=== PATIENT | male | born 1950 | race Caucasian/White ===

== ENCOUNTER 2017-11-21 23:03 | Inpatient (IN) ==
[2017-11-21] MEDS ORDERED: 0.9 % Sodium Chloride 1,000 ML IVC ONE (23:09)
[2017-11-21] MEDS ORDERED: Ketorolac 30 MG/ML VIAL IVP ONE (23:18)
--- NOTE | 2017-11-21 23:32 | Emergency Department Note ---
Disposition Clinical Impression: Calculus of kidney, Acute kidney injury Disposition: Admitted As Inpatient Condition: Undetermined Abdominal Pain HPI - General Chief Complaint: ED Abdominal Pain Stated Complaint: abdominal pain Time Seen by Provider: 11/21/17 23:08 Source: patient Mode of arrival: private vehicle Limitations: no limitations Nursing Notes Reviewed: Yes Vital Signs Reviewed: Yes - History of Present Illness HPI Narrative: 67-year-old male with a history of hypertension, diabetes mellitus, multiple renal calculi with obstructing and nonobstructing presents emergency department for evaluation of a kidney stone from his right kidney. Patient states he has had at least 12 separate kidney stones, he has had a choking signs once and had to have surgery and he has passed many stones at his home, he states this is the exact same pain and he is for certain that he is having another kidney stone. Patient describes abdominal pain starting in his back around to the abdomen, is accompanied by nausea, vomiting. symptoms started 2 days ago, and have only gotten worse. She states urine is starting to turn red, but he has not passed the stone as of yet. Last kidney stone 08/03, passed on his own. Patient follows with Dr. Mi from urology, but has not had to see him for quite some time. Denies dysuria, polyuria, difficulty with urination. Patient is not on any blood thinners, denies fever, chills. Last bowel movement was yesterday and normal, denies prostate problems. Known medications include Januvia, glipizide, Lipitor, lisinopril. Pt Subjective Complaint: abdominal pain, flank pain Onset (ago): day(s) Consistency: constant, intermittent, Worsening Location: R flank Pain Severity: moderate, severe Pain Scale: 8 Quality: cramping, sharp Radiation: RUQ, RLQ Migration to: no migration Improves with: nothing Worsens with: nothing, other (Urination) Treatments prior to arrival: none - Related Data Home Medications Medication Instructions Recorded Confirmed Escitalopram [Lexapro] 20 mg PO DAILY 05/28/15 11/22/17 Meloxicam [Mobic] 7.5 mg PO DAILY 05/28/15 11/22/17 Methocarbamol [Robaxin] 750 mg PO Q8HR 05/28/15 11/22/17 Omeprazole [PriLOSEC] 20 mg PO DAILY 05/28/15 11/22/17 Potassium Chloride [Klor-Con 10 meq PO DAILY 05/28/15 11/22/17 Sprinkle] Valsartan/Hydrochlorothiazide 1 each PO DAILY 05/28/15 11/22/17 [Diovan Hct 320-12.5 mg Tab] GlipiZIDE XL (24 HR) [Glucotrol XL] 10 mg PO DAILY 01/28/16 11/22/17 Mometasone Furoate [Nasonex] 1 spr NS DAILY 01/28/16 11/22/17 Previous Rx's Medication Instructions Recorded Oxycodone HCl/Acetaminophen 1 tab PO Q6HR PRN #8 tab 05/28/15 [Percocet 10-325 mg Tablet] Allergies Allergy/AdvReac Type Severity Reaction Status Date / Time Amoxicillin AdvReac Hives Verified 11/21/17 23:05 ampicillin AdvReac Hives Verified 11/21/17 23:05 aspirin [ASA] AdvReac See Verified 11/21/17 23:05 Comments celecoxib [From Celebrex] AdvReac Nausea Verified 11/21/17 23:05 cephalexin [From Keflex] AdvReac Chest Pain Verified 11/21/17 23:05 lisinopril AdvReac UNKNOWN Verified 11/21/17 23:05 metformin AdvReac Diarrhea Verified 11/21/17 23:05 Penicillins AdvReac Hives Verified 11/21/17 23:05 All systems ED: reviewed and negative except as stated. Review of Systems: As Per HPI Abdominal Pain PMH - Past Medical History Medical history: Reports: diabetes, GERD, hypertension, kidney stones Psychiatric history: Reports: anxiety, depression - Social History Smoking status: Never smoker Alcohol use: Reports: none Drug use: Reports: none Physical Exam - General Limitations: no limitations General appearance: alert, in no apparent distress - Head Head exam: atraumatic, normocephalic, normal inspection - Chest Chest inspection: Present: normal inspection, symmetric chest wall rise - Respiratory Respiratory exam: Present: normal lung sounds bilaterally - Cardiovascular Cardiovascular exam: Present: regular rate, normal rhythm, normal heart sounds - Abdominal Exam Abdominal exam: Present: soft, Non-Tender, normal bowel sounds. Absent: tenderness, distention, guarding, rebound, rigidity - Extremities Exam Extremities exam: Present: normal inspection, full ROM. Absent: tenderness, pedal edema - Back Exam Back exam: Present: normal inspection, full ROM, CVA tenderness (R) - Neurological Exam Neurological exam: Present: alert, oriented X3 - Psychiatric Psychiatric exam: Present: normal affect, normal mood - Skin Skin exam: Present: warm, dry, intact, normal color Course Course Narrative: 67-year-old well-hydrated, well-developed, obese male in moderate amount of distress. Patient sitting on side of bed rubbing right flank area and right abdomen. He is alert and oriented 3, respirations are easy and even, slightly tachycardic at 113, abdomen protuberant, bowel sounds 4. Due to history of obstructive kidney stones we will get a CT the abdomen and pelvis along with a urine, basic lab work and evaluated. - Reevaluation(s) Reevaluation #1: Laboratory results shows a leukocytosis 13.9 white cell count, continues with slight tachycardia. Meet Sirs criteria. CT shows 15 mm stone in the ureteropelvic area of the right kidney, with hydronephrosis. Metabolic panel shows kidney injury with a creatinine above baseline, GFR below baseline, elevated BUNs at 25. Spoke with Dr. Ragland and discussed case with him, he states he will see them in the morning. Discussed case with hospitalist Dr. Lara who agreed to take the patient for an inpatient stay. Sepsis subset completed, we will finish the 30 mL kilogram bolus given an additional 2 L, continued to manage pain, order blood cultures, started Levaquin antibiotic due to allergy to penicillins, Rocephin's, cephalosporins. Family agreeable plan of care. Patient remains stable at this time. Time: 01:15 Vital Signs Temperature 99.3 F 11/21/17 23:03 Pulse Rate 113 11/21/17 23:03 Respiratory Rate 16 11/21/17 23:03 Blood Pressure 176/98 11/21/17 23:03 O2 Sat by Pulse Oximetry 96 11/21/17 23:03 Temperature 99.5 F 11/22/17 00:13 Pulse Rate 103 11/22/17 00:13 Respiratory Rate 18 11/22/17 00:13 Blood Pressure 126/61 11/22/17 00:13 O2 Sat by Pulse Oximetry 96 11/22/17 00:13 Oxygen Delivery Oxygen Delivery Room Air Abdominal Pain - Differential Diagnosis Differential Diagnosis: Likely: abdominal pain non-specific, AAA, calculus of kidney, constipation, ischemic bowel, pancreatitis, small bowel obstruction. Unlikely: abdominal pain mimics ectopic , acute appendicitis, colonic obstruction, endometriosis, - Medical Records Medical records reviewed: Yes I reviewed the patient's medical records. - Lab Data Lab results reviewed: Yes I reviewed the patient's lab results. Result diagrams: 11/21/17 23:20 11/21/17 23:20 Lab Results 11/21/17 11/21/17 11/21/17 Range/Units 23:20 23:20 23:20 WBC 13.9 H (4.3-11.1) K/mcL RBC 4.06 L (4.19-5.50) M/mcL Hgb 12.4 L (12.9-16.9) g/dL Hct 36.4 L (37.5-50.1) % MCV 89.7 (83.0-100.0) fL MCH 30.5 (28.0-33.3) pg MCHC 34.1 (31.6-35.5) g/dL RDW 12.8 (11.5-14.5) % Plt Count 255 (140-400) K/mcL MPV 10.5 (9.4-12.4) fL Immature Gran % 0.4 (0-4) % Seg Neutrophils % 66.7 % Lymphocytes % 18.1 % Monocytes % 12.7 % Eosinophils % 1.5 % Basophils % 0.6 % Neutrophils # 9.3 H (1.6-8.9) K/mcL Lymphocytes # 2.5 (0.6-4.6) K/mcL Monocytes # 1.8 H (0.0-1.3) K/mcL Eosinophils # 0.2 (0.0-0.6) K/mcL Basophils # 0.1 (0.0-0.2) K/mcL PT 11.8 (9.4-12.1) Seconds INR 1.1 APTT 28.5 (26.0-36.0) Seconds Sodium 133 L (136-145) mEq/L Potassium 4.1 (3.5-5.1) mEq/L Chloride 98 (98-107) mEq/L Carbon Dioxide 26 (23-29) mEq/L BUN 25 H (8-23) mg/dL Creatinine 2.21 H (0.70-1.30) mg/dL Est GFR ( Amer) 36 L (> 60) Est GFR (Non-Af Amer) 30 L (> 60) BUN/Creatinine Ratio 11 (6-26) Glucose 203 H (70-105) mg/dL Calculated Osmolality 286 (280-300) Lactic Acid (0.5-2.2) mmol/L Calcium 8.7 (8.6-10.3) mg/dL Total Bilirubin 0.7 (0.3-1.0) mg/dL Direct Bilirubin 0.2 (0.0-0.2) mg/dL Indirect Bilirubin 0.5 (0.0-1.2) mg/dL AST 20 (13-39) Units/L ALT 21 (7-52) Units/L Alkaline Phosphatase 107 H (34-104) Units/L Serum Total Protein 7.4 (6.4-8.9) g/dL Albumin 3.7 (3.5-5.7) g/dL Globulin 3.7 H (2.4-3.5) g/dL Albumin/Globulin Ratio 1.0 L (1.1-2.2) Lipase 20 (11-82) Units/L Urine Color (Yellow) Urine Clarity (Clear) Urine pH (5.0-8.0) pH Units Ur Specific [place] (1.010-1.025) Urine Protein (Neg-Trace) mg/dL Urine Glucose (UA) (Normal) mg/dL Urine Ketones (Negative) mg/dL Urine Blood (Negative) Urine Nitrite (Negative) Urine Bilirubin (Negative) Urine Urobilinogen (Normal) mg/dL Ur Leukocyte Esterase (Negative) Urine Microscopic RBC (0-3) per hpf Urine Microscopic WBC (0-3) per hpf Ur Squamous Epith Cells (None-Few) per lpf Urine Bacteria (None-Few) per hpf Hyaline Casts (None-Few) per lpf Ur Culture Indicated? (NO) 11/22/17 11/22/17 Range/Units 00:34 01:56 WBC (4.3-11.1) K/mcL RBC (4.19-5.50) M/mcL Hgb (12.9-16.9) g/dL Hct (37.5-50.1) % MCV (83.0-100.0) fL MCH (28.0-33.3) pg MCHC (31.6-35.5) g/dL RDW (11.5-14.5) % Plt Count (140-400) K/mcL MPV (9.4-12.4) fL Immature Gran % (0-4) % Seg Neutrophils % % Lymphocytes % % Monocytes % % Eosinophils % % Basophils % % Neutrophils # (1.6-8.9) K/mcL Lymphocytes # (0.6-4.6) K/mcL Monocytes # (0.0-1.3) K/mcL Eosinophils # (0.0-0.6) K/mcL Basophils # (0.0-0.2) K/mcL PT (9.4-12.1) Seconds INR APTT (26.0-36.0) Seconds Sodium (136-145) mEq/L Potassium (3.5-5.1) mEq/L Chloride (98-107) mEq/L Carbon Dioxide (23-29) mEq/L BUN (8-23) mg/dL Creatinine (0.70-1.30) mg/dL Est GFR ( Amer) (> 60) Est GFR (Non-Af Amer) (> 60) BUN/Creatinine Ratio (6-26) Glucose (70-105) mg/dL Calculated Osmolality (280-300) Lactic Acid 1.1 (0.5-2.2) mmol/L Calcium (8.6-10.3) mg/dL Total Bilirubin (0.3-1.0) mg/dL Direct Bilirubin (0.0-0.2) mg/dL Indirect Bilirubin (0.0-1.2) mg/dL AST (13-39) Units/L ALT (7-52) Units/L Alkaline Phosphatase (34-104) Units/L Serum Total Protein (6.4-8.9) g/dL Albumin (3.5-5.7) g/dL Globulin (2.4-3.5) g/dL Albumin/Globulin Ratio (1.1-2.2) Lipase (11-82) Units/L Urine Color Yellow (Yellow) Urine Clarity Clear (Clear) Urine pH 5.5 (5.0-8.0) pH Units Ur Specific [place] 1.026 H (1.010-1.025) Urine Protein Trace (Neg-Trace) mg/dL Urine Glucose (UA) Normal (Normal) mg/dL Urine Ketones Negative (Negative) mg/dL Urine Blood Trace H (Negative) Urine Nitrite Negative (Negative) Urine Bilirubin Negative (Negative) Urine Urobilinogen Normal (Normal) mg/dL Ur Leukocyte Esterase Negative (Negative) Urine Microscopic RBC 3-5 H (0-3) per hpf Urine Microscopic WBC 3-5 H (0-3) per hpf Ur Squamous Epith Cells Moderate H (None-Few) per lpf Urine Bacteria None Seen (None-Few) per hpf Hyaline Casts None Seen (None-Few) per lpf Ur Culture Indicated? NO (NO) - Radiology Data Radiology results reviewed: Yes I reviewed the patient's radiology results. Abdomen/Pelvis CT 11/21/17 23:19 IMPRESSION: Moderate right hydronephrosis due to a 15 mm stone at the ureteropelvic junction. Multiple smaller nonobstructing nephroliths bilaterally. Other incidental findings as above. Urologic consultation recommended. D/ / Robby Jordan MD / Robby Jordan MD Interpreting Provider: Robby Jordan MD - EKG Data EKG attestation: Yes I reviewed and interpreted this EKG. Attestation Statement - Attestation Attestation: I examined this patient and my medical decision-making was reviewed with the Resident Physician. I agree with the documented findings, disposition and treatment plan as described except to the extent set forth below. Findings consistent with obstructive uropathy. Plan to admit for urology consult given acute kidney injury.
[2017-11-21 23:39] LABS: Basophils # 0.1 K/mcL (0.0-0.2); Basophils % 0.6 %; Eosinophils # 0.2 K/mcL (0.0-0.6); Eosinophils % 1.5 %; Hematocrit 36.4 % (37.5-50.1); Hemoglobin 12.4 g/dL (12.9-16.9); Immature Granulocytes % 0.4 % (0-4); Lymphocytes # 2.5 K/mcL (0.6-4.6); Lymphocytes % 18.1 %; Mean Corpuscular HGB Conc 34.1 g/dL (31.6-35.5); Mean Corpuscular Hemoglobin 30.5 pg (28.0-33.3); Mean Corpuscular Volume 89.7 fL (83.0-100.0); Mean Platelet Volume 10.5 fL (9.4-12.4); Monocytes # 1.8 K/mcL (0.0-1.3); Monocytes % 12.7 %; Neutrophils # 9.3 K/mcL (1.6-8.9); Platelet Count 255 K/mcL (140-400); Red Blood Count 4.06 M/mcL (4.19-5.50); Red Cell Distribution Width 12.8 % (11.5-14.5); Segmented Neutrophils % 66.7 %
[2017-11-21 23:44] LABS: INR 1.1; Prothrombin Time 11.8 Seconds (9.4-12.1)
[2017-11-21 23:47] LABS: Activated Partial Thrombo Time 28.5 Seconds (26.0-36.0)
[2017-11-21 23:55] LABS: Albumin 3.7 g/dL (3.5-5.7); Bilirubin,Direct 0.2 mg/dL (0.0-0.2); Bilirubin,Indirect 0.5 mg/dL (0.0-1.2); Bilirubin,Total 0.7 mg/dL (0.3-1.0); Calcium 8.7 mg/dL (8.6-10.3); Globulin 3.7 g/dL (2.4-3.5); Potassium 4.1 mEq/L (3.5-5.1); Total Protein 7.4 g/dL (6.4-8.9)
[2017-11-22 00:45] LABS: Bilirubin,Urine Negative (Negative); Blood,Urine Trace (Negative); Clarity,Urine Clear (Clear); Color,Urine Yellow (Yellow); Glucose,Urine (UA) Normal (Normal); Ketones,Urine Negative (Negative); Leukocyte Esterase,Urine Negative (Negative); Nitrite,Urine Negative (Negative); PH,Urine 5.5 pH Units (5.0-8.0); Protein,Urine Trace mg/dL (Neg-Trace); Specific Gravity,Urine 1.026 (1.010-1.025); Urobilinogen,Urine Normal (Normal)
[2017-11-22 00:48] LABS: Bacteria,Urine None Seen per hpf (None-Few); Hyaline Casts,Urine None Seen per lpf (None-Few); Squamous Epithelial Cell,Urine Moderate per lpf (None-Few)
[2017-11-22] MEDS ORDERED: Levofloxacin 750 MG/150 ML 750 MG/150 ML BAG IVPB SCH (01:00)
[2017-11-22] MEDS: 0.9 % Sodium Chloride 1,000 ML IVC SCH ×4 (01:33→12:30)
[2017-11-22] MEDS ORDERED: OXYCODONE Oral CONC 10 MG/0.5 ML ORAL.SYG SL PRN (02:10)
[2017-11-22] MEDS ORDERED: Ondansetron 4 MG/2 ML VIAL IVP PRN (02:10)
[2017-11-22] MEDS ORDERED: Naloxone 0.4 MG/ML INJ IVP PRN (02:10)
[2017-11-22] MEDS ORDERED: Dextrose Gel 15 GM/37.5 ML TUBE PO PRN ×2 (02:17)
[2017-11-22] MEDS ORDERED: D5% in Water 1,000 ML IVC PRN (02:17)
[2017-11-22] MEDS ORDERED: *HR* Dextrose 50 % in Water (Syg) 50 ML SYRINGE IVP PRN (02:17)
--- NOTE | 2017-11-22 04:26 | Internal Med History&Physical ---
Date of Encounter: 11/22/17 Time of Encounter: 01:00 Internal Medicine - H&P: HPI Chief complaint: Right flank pain Admitted From: Home Plans for Post Hospital Care: Home History of present illness: Mr. Chen is a 67 year old male presented to ER for right-sided flank pain. Past medical history is significant for diabetes, hypertension, hyperlipidemia, BON on CPAP. Patient said he has right-sided flank pain for 1-2 days. Pain radiated to right groin area. Patient has nausea and fever, but no vomiting. patient also has dysuria and burning sensation on urination. He has history of kidney stone and he has similar symptoms with last time ureteral stone. In the emergency room, CT abdomen shows right-sided ureteral stone with obstruction. Urology consult called by emergency room. Patient was admitted for UTI, urosepsis, and ureteral stone. Past Med Surg Social Fam HX - Past Medical History Medical history: diabetes, GERD, hypertension, kidney stones Psychiatric history: anxiety, depression - Past Surgical History Surgical History: cholecystectomy, vasectomy - Social History Smoking Status: Never smoker Smokeless Tobacco Status: No Alcohol use: none Drug use: none - Family History Mother History Unknown: Yes Internal Medicine - H&P: Meds Escitalopram [Lexapro] 20 mg PO DAILY 05/28/15 [History] Meloxicam [Mobic] 7.5 mg PO DAILY 05/28/15 [History] Methocarbamol [Robaxin] 750 mg PO Q8HR 05/28/15 [History] Omeprazole [PriLOSEC] 20 mg PO DAILY 05/28/15 [History] Oxycodone HCl/Acetaminophen [Percocet 10-325 mg Tablet] 1 tab PO Q6HR PRN #8 tab 05/28/15 [Rx] Potassium Chloride [Klor-Con Sprinkle] 10 meq PO DAILY 05/28/15 [History] Valsartan/Hydrochlorothiazide [Diovan Hct 320-12.5 mg Tab] 1 each PO DAILY 05/28 [History] GlipiZIDE XL (24 HR) [Glucotrol XL] 10 mg PO DAILY 01/28/16 [History] Mometasone Furoate [Nasonex] 1 spr NS DAILY 01/28/16 [History] 3 Allergy/AdvReac Type Severity Reaction Status Date / Time Amoxicillin AdvReac Hives Verified 11/21/17 23:05 ampicillin AdvReac Hives Verified 11/21/17 23:05 aspirin [ASA] AdvReac See Verified 11/21/17 23:05 Comments celecoxib [From Celebrex] AdvReac Nausea Verified 11/21/17 23:05 cephalexin [From Keflex] AdvReac Chest Pain Verified 11/21/17 23:05 lisinopril AdvReac UNKNOWN Verified 11/21/17 23:05 metformin AdvReac Diarrhea Verified 11/21/17 23:05 Penicillins AdvReac Hives Verified 11/21/17 23:05 All Systems PM: A 10-system review of systems was performed and is negative for pertinent findings except as documented above in the HPI. - Constitutional Vitals: Temp Pulse Resp BP Pulse Ox 99.5 F 103 18 126/61 96 11/22/17 00:13 11/22/17 00:13 11/22/17 00:13 11/22/17 00:13 11/22/17 00:13 General appearance: Present: mild distress, A&O X 3, answers questions appropriately - Head Head exam: Present: atraumatic, normocephalic - Eye Eye exam: Present: PERRL, conjuntiva pink, sclera anicteric Pupils: Present: PERRL - Neck Neck exam general surgery: Present: supple, trachea midline. Absent: lymphadenopathy - Respiratory Respiratory exam: Present: CTAB. Absent: accessory muscle use, rales, rhonchi, wheezes - Cardiovascular Cardiovascular exam: Present: RRR, +S1, +S2. Absent: diastolic murmur, gallop, rubs, systolic murmur - GI/Abdominal GI/Abdominal exam: Present: normal bowel sounds, soft, no peritoneal signs. Absent: distended, tenderness Additional comments: CVAT positive on the right side - Extremities Exam Extremities exam: Present: warm, radial pulses palpable and symmetrical. Absent : calf tenderness, cyanotic, pedal edema - Neurological Exam Neurological exam: Present: CN II-XII intact, oriented X3, no focal deficits. Absent: pronater drift, facial droop, speech deficit - Skin Skin exam: Present: dry, intact Internal Med - H&P Results - Labs CBC & Chem 7: 11/21/17 23:20 11/21/17 23:20 - Assessment and plan (1) Sepsis Current Visit: Yes Status: Acute Assessment and plan: Patient meets sepsis criteria with leukocytosis, tachycardia, and low fever. Infection source is considered UTI. - Early IV fluid resuscitation started from ER. Continue IV fluid - Lactate acid 1.1 - Start Levaquin IV - Urology consult to solve obstruction - Follow up blood and urine culture Qualifiers: Qualified Code(s): A41.9 - Sepsis, unspecified organism (2) Ureteral stone Current Visit: Yes Status: Acute Assessment and plan: Urology consult. 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 Closely monitor BP Qualifiers: Hypertension type: essential hypertension Qualified Code(s): I10 - Essential (primary) hypertension (5) BON on CPAP Current Visit: Yes Status: Acute Assessment and plan: Continue CPAP during night (6) DVT prophylaxis Current Visit: Yes Status: Acute Assessment and plan: EPCD (7) Acute kidney injury Current Visit: Yes Status: Acute Assessment and plan: Probably multiple factors include dehydration, right side of obstruction. Will continue IV fluid, avoid nephrotoxic medications, and follow-up renal function - Time Spent With Patient Total time spent is greater than 50% in coordination of care (as documented) at patient's floor/unit and/or counseling patient: 40 minutes Greater than 35 minutes
[2017-11-22] MEDS: Insulin LISPRO 300 UNITS/3 ML VIAL SQ SCH ×3 (04:34→17:40)
[2017-11-22] MEDS: OXYCODONE Oral CONC 10 MG/0.5 ML ORAL.SYG SL PRN ×3 (05:16→17:46)
[2017-11-22 05:51] LABS: Basophils # 0.1 K/mcL (0.0-0.2); Basophils % 0.6 %; Eosinophils # 0.2 K/mcL (0.0-0.6); Eosinophils % 1.8 %; Hematocrit 30.8 % (37.5-50.1); Immature Granulocytes % 0.3 % (0-4); Lymphocytes # 2.1 K/mcL (0.6-4.6); Lymphocytes % 19.4 %; Mean Corpuscular HGB Conc 34.4 g/dL (31.6-35.5); Mean Corpuscular Hemoglobin 30.7 pg (28.0-33.3); Mean Corpuscular Volume 89.3 fL (83.0-100.0); Mean Platelet Volume 10.4 fL (9.4-12.4); Monocytes # 1.4 K/mcL (0.0-1.3); Monocytes % 13.2 %; Neutrophils # 6.8 K/mcL (1.6-8.9); Platelet Count 199 K/mcL (140-400); Red Blood Count 3.45 M/mcL (4.19-5.50); Red Cell Distribution Width 12.8 % (11.5-14.5); Segmented Neutrophils % 64.7 %
[2017-11-22 05:53] LABS: Hemoglobin 10.6 g/dL (12.9-16.9)
[2017-11-22 06:08] LABS: Calcium 7.5 mg/dL (8.6-10.3); Magnesium 1.2 mg/dL (1.6-2.6)
--- NOTE | 2017-11-22 08:09 | Urology - Consult Note ---
Date of Encounter: 11/22/17 Time of Encounter: 08:07 - Assessment and Plan (1) Acute kidney injury Current Visit: Yes Status: Acute Assessment and plan: Appreciate hospitalist support. We will avoid nephrotoxins. (2) Calculus of kidney Current Visit: Yes Status: Acute Assessment and plan: 67-year-old man with a right 15 mm ureteropelvic junction stone. I recommend proceeding with a cystoscopy and right ureteral stent placement. He was informed of the risks of the procedure including but not limited to bleeding, infection, injury to other structures, need for further procedures, stent irritation, ureteral perforation, need for nephrostomy tube, need for open repair, risks unforeseen, and the risk of anesthesia. He is willing to proceed. Urology CN:NIDIA Consult date: 11/22/17 Reason for consult Urology: Other (Right UPJ stone, PRASAD) History of present illness: 67-year-old man was admitted for a right UPJ stone with hydronephrosis and acute kidney injury. He began to have right flank pain starting for 5 days ago. The pain became more severe yesterday. It was sharp. It radiated to the groin. He reports having a known history of kidney stones and felt this was very similar to previous episodes. He came to the emergency department. A CT scan was obtained which showed a 15 mm right UPJ stone with evidence of hydronephrosis. In addition, he had an elevated creatinine. He was admitted for further care. He denies any fevers or chills. Past Med Surg Social Fam HX - Past Medical History Medical history: diabetes, GERD, hypertension, kidney stones Psychiatric history: anxiety, depression - Past Surgical History Surgical History: cholecystectomy, vasectomy - Social History Smoking Status: Never smoker Smokeless Tobacco Status: No Alcohol use: none Drug use: none - Family History Mother History Unknown: Yes Medications and Allergies Escitalopram [Lexapro] 20 mg PO DAILY 05/28/15 [History] Omeprazole [PriLOSEC] 20 mg PO DAILY 05/28/15 [History] Valsartan/Hydrochlorothiazide [Diovan Hct 320-12.5 mg Tab] 1 each PO DAILY 05/28 [History] GlipiZIDE XL (24 HR) [Glucotrol XL] 10 mg PO DAILY 01/28/16 [History] Atorvastatin Calcium [Lipitor] 80 mg PO HS 11/22/17 [History] Cyclobenzaprine [Flexeril] 10 mg PO TID 11/22/17 [History] Exenatide Microspheres [Bydureon Pen] 2 mg SQ QWEEK 11/22/17 [History] Meloxicam [Mobic] 15 mg PO DAILY 11/22/17 [History] Oxycodone HCl/Acetaminophen [Percocet 5-325 mg Tablet] 1 tab PO BID PRN [History] Potassium Chloride [K-Tab ER] 40 meq PO BID 11/22/17 [History] SitaGLIPtin [Januvia] 100 mg PO DAILY 11/22/17 [History] 3 Allergy/AdvReac Type Severity Reaction Status Date / Time Amoxicillin AdvReac Hives Verified 11/21/17 23:05 ampicillin AdvReac Hives Verified 11/21/17 23:05 aspirin [ASA] AdvReac See Verified 11/21/17 23:05 Comments celecoxib [From Celebrex] AdvReac Nausea Verified 11/21/17 23:05 cephalexin [From Keflex] AdvReac Chest Pain Verified 11/21/17 23:05 lisinopril AdvReac UNKNOWN Verified 11/21/17 23:05 metformin AdvReac Diarrhea Verified 11/21/17 23:05 Penicillins AdvReac Hives Verified 11/21/17 23:05 Review of Systems - Constitutional no chills, no fever(s) - EENT Nose, mouth and throat: no dizziness - Cardiovascular no chest pain - Respiratory no dyspnea - Gastrointestinal no nausea, no vomiting - Genitourinary flank pain, no hematuria - Musculoskeletal no back pain - Integumentary no erythema, no rash - Neurological no weakness - Psychiatric no suicidal ideation - Hematologic/Lymphatic no easy bleeding - Allergic/Immunologic no wheezing Exam Initial Vital Signs Temp Pulse Resp BP Pulse Ox 99.3 F 113 16 176/98 96 11/21/17 23:03 11/21/17 23:03 11/21/17 23:03 11/21/17 23:03 11/21/17 23:03 - General physical appearance Present: well developed, well nourished, no distress - Eyes Absent: icteric - ENT Present: normal nares - Neck Present: trachea midline - Respiratory Present: normal respiratory effort - Cardiovascular Cardiovascular exam IM: RRR - Abdomen Abdomen: Present: soft - Integumentary Present: no rash - Neurologic Present: normal coordination - Musculoskeletal Present: other (grossly normal) Urology Results - Labs 11/22/17 05:37 11/22/17 05:37 Abnormal lab results RBC 3.45 M/mcL (4.19-5.50) L 11/22/17 05:37 Hgb 10.6 g/dL (12.9-16.9) L D 11/22/17 05:37 Hct 30.8 % (37.5-50.1) L 11/22/17 05:37 Monocytes # 1.4 K/mcL (0.0-1.3) H 11/22/17 05:37 Sodium 134 mEq/L (136-145) L 11/22/17 05:37 BUN 26 mg/dL (8-23) H 11/22/17 05:37 Creatinine 2.07 mg/dL (0.70-1.30) H 11/22/17 05:37 Est GFR ( Amer) 39 (> 60) L 11/22/17 05:37 Est GFR (Non-Af Amer) 32 (> 60) L 11/22/17 05:37 Glucose 139 mg/dL (70-105) H 11/22/17 05:37 Calcium 7.5 mg/dL (8.6-10.3) L 11/22/17 05:37 Magnesium 1.2 mg/dL (1.6-2.6) L 11/22/17 05:37 Alkaline Phosphatase 107 Units/L (34-104) H 11/21/17 23:20 Globulin 3.7 g/dL (2.4-3.5) H 11/21/17 23:20 Albumin/Globulin Ratio 1.0 (1.1-2.2) L 11/21/17 23:20 Ur Specific [place] 1.026 (1.010-1.025) H 11/22/17 00:34 Urine Blood Trace (Negative) H 11/22/17 00:34 Urine Microscopic RBC 3-5 per hpf (0-3) H 11/22/17 00:34 Urine Microscopic WBC 3-5 per hpf (0-3) H 11/22/17 00:34 Ur Squamous Epith Cells Moderate per lpf (None-Few) H 11/22/17 00:34 Diabetes panel 11/22/17 Range/Units 05:37 Sodium 134 L (136-145) mEq/L Potassium 4.0 (3.5-5.1) mEq/L Chloride 102 (98-107) mEq/L Carbon Dioxide 24 (23-29) mEq/L BUN 26 H (8-23) mg/dL Creatinine 2.07 H (0.70-1.30) mg/dL Glucose 139 H (70-105) mg/dL Calcium 7.5 L (8.6-10.3) mg/dL Calcium panel 11/22/17 Range/Units 05:37 Calcium 7.5 L (8.6-10.3) mg/dL Pituitary panel 11/22/17 Range/Units 05:37 Sodium 134 L (136-145) mEq/L Potassium 4.0 (3.5-5.1) mEq/L Chloride 102 (98-107) mEq/L Carbon Dioxide 24 (23-29) mEq/L BUN 26 H (8-23) mg/dL Creatinine 2.07 H (0.70-1.30) mg/dL Glucose 139 H (70-105) mg/dL Calcium 7.5 L (8.6-10.3) mg/dL Adrenal panel 11/22/17 Range/Units 05:37 Sodium 134 L (136-145) mEq/L Potassium 4.0 (3.5-5.1) mEq/L Chloride 102 (98-107) mEq/L Carbon Dioxide 24 (23-29) mEq/L BUN 26 H (8-23) mg/dL Creatinine 2.07 H (0.70-1.30) mg/dL Glucose 139 H (70-105) mg/dL Calcium 7.5 L (8.6-10.3) mg/dL All other labs normal. - Imaging CT scan - abdomen: report reviewed, image reviewed CT scan - pelvis: report reviewed, image reviewed Consult Discharge Plan - Plan Referrals: Sidney Leger MD [Primary Care Provider] -
--- NOTE | 2017-11-22 09:55 | Internal Med Progress Note ---
<James Boswell - Last Filed: 11/22/17 09:52> Date of Encounter: 11/22/17 Time of Encounter: 09:52 - Assessment and plan (1) Sepsis Current Visit: Yes Status: Acute Assessment and plan: Patient was tachycardic, with elevated white blood cell count on admission. Found to have right nephrolithiasis with obstruction and hydronephrosis Urine culture and blood cultures sent and pending. We will continue Levaquin. Qualifiers: Qualified Code(s): A41.9 - Sepsis, unspecified organism (2) Acute kidney injury Current Visit: Yes Status: Acute Assessment and plan: Secondary to right sided nephrolithiasis with obstruction. Continue IV fluids. Avoid nephrotoxins. (3) Ureteral stone Current Visit: Yes Status: Acute Assessment and plan: Plan for cystoscopy today with right ureteral stent placement by urology. Patient has a history of kidney stones. Reports her calcium. He is currently on hydrochlorothiazide which does increase calcium resorption. Depending on what type of calcium stone patient has he may benefit from alkalizing or acidifying urine to decrease stone formation. (4) Diabetes Current Visit: Yes Status: Acute Assessment and plan: Last hemoglobin A1c was 8.8. Patient is on oral hypoglycemic agents outpatient. Currently nothing by mouth for procedure. continue sliding scale insulin. Qualifiers: Diabetes mellitus type: type 2 Diabetes mellitus termite helper insulin use: without detention use Diabetes mellitus complication status: without complication Qualified Code(s): E11.9 - Type 2 diabetes mellitus without complications (5) Hypertension Current Visit: Yes Status: Acute Assessment and plan: Patient has a history of hypertension. We will hold blood pressure medications secondary to a PRASAD Patient's blood pressure is controlled. Qualifiers: Hypertension type: essential hypertension Qualified Code(s): I10 - Essential (primary) hypertension (6) BON on CPAP Current Visit: Yes Status: Acute Assessment and plan: Continue CPAP during night (7) DVT prophylaxis Current Visit: Yes Status: Acute Assessment and plan: EPCD - Time Spent With Patient Total time spent is greater than 50% in coordination of care (as documented) at patient's floor/unit and/or counseling patient: - Subjective Interval history: Patient admitted for right flank pain and found to have obstructive nephrolithiasis on the right with hydronephrosis. He will undergo cystoscopy and right ureteral stent placement today. - Constitutional Vitals: Temp Pulse Resp BP Pulse Ox 98.2 F 99 18 157/88 95 11/22/17 06:45 11/22/17 06:45 11/22/17 06:45 11/22/17 06:45 11/22/17 06:45 General appearance: Present: mild distress, A&O X 3, answers questions appropriately - Other Additional findings: General: without distress Heart: Regular rate and rhythm with no murmur Lungs: Clear to auscultation bilaterally Abdomen: Soft nontender, nondistended positive bowel sounds Skin: warm and dry, absent rash Genitourinary: Absent discharge, absent erythema, absent swelling Extremities: Absent pedal edema, Neuro: Alert oriented 3 Vascular: Pedal and radial pulses 2 out of 4 Internal Medicine: Result - Labs CBC & Chem 7: 11/22/17 05:37 11/22/17 05:37 Labs: Short CBC 11/22/17 Range/Units 05:37 WBC 10.6 (4.3-11.1) K/mcL Hgb 10.6 L D (12.9-16.9) g/dL Hct 30.8 L (37.5-50.1) % Plt Count 199 (140-400) K/mcL Neutrophils # 6.8 (1.6-8.9) K/mcL BMP 11/22/17 05:37 Sodium 134 L Potassium 4.0 Chloride 102 Carbon Dioxide 24 BUN 26 H Creatinine 2.07 H Glucose 139 H Calcium 7.5 L - ABG Interpretation ABG results: PT/INR, D-dimer PT 11.8 Seconds (9.4-12.1) 11/21/17 23:20 Consult Discharge Plan - Plan Referrals: Sidney Leger MD [Primary Care Provider] - <Andreas Azevedo - Last Filed: 11/22/17 13:08> Date of Encounter: 11/22/17 - Assessment and plan (1) Acute kidney injury Current Visit: Yes Status: Acute (2) Sepsis Current Visit: Yes Status: Acute Qualifiers: Qualified Code(s): A41.9 - Sepsis, unspecified organism (3) Ureteral stone Current Visit: Yes Status: Acute (4) Diabetes Current Visit: Yes Status: Acute Qualifiers: Diabetes mellitus type: type 2 Diabetes mellitus termite helper insulin use: without termite helper use Diabetes mellitus complication status: without complication Qualified Code(s): E11.9 - Type 2 diabetes mellitus without complications (5) Hypertension Current Visit: Yes Status: Acute Qualifiers: Hypertension type: essential hypertension Qualified Code(s): I10 - Essential (primary) hypertension (6) BON on CPAP Current Visit: Yes Status: Acute (7) DVT prophylaxis Current Visit: Yes Status: Acute - Time Spent With Patient Total time spent is greater than 50% in coordination of care (as documented) at patient's floor/unit and/or counseling patient: - Constitutional Vitals: Temp Pulse Resp BP Pulse Ox 98.2 F 106 19 148/79 95 11/22/17 11:14 11/22/17 11:14 11/22/17 11:14 11/22/17 11:14 11/22/17 11:14 Internal Medicine: Result - Labs CBC & Chem 7: 11/22/17 05:37 11/22/17 05:37 Labs: Short CBC 11/22/17 Range/Units 05:37 WBC 10.6 (4.3-11.1) K/mcL Hgb 10.6 L D (12.9-16.9) g/dL Hct 30.8 L (37.5-50.1) % Plt Count 199 (140-400) K/mcL Neutrophils # 6.8 (1.6-8.9) K/mcL BMP 11/22/17 05:37 Sodium 134 L Potassium 4.0 Chloride 102 Carbon Dioxide 24 BUN 26 H Creatinine 2.07 H Glucose 139 H Calcium 7.5 L - ABG Interpretation ABG results: PT/INR, D-dimer PT 11.8 Seconds (9.4-12.1) 11/21/17 23:20 - Attending Attestation I examined this patient 11/22, and my medical decision-making was reviewed with the Resident Physician. I agree with the documented findings, disposition and treatment plan as described except to the extent set forth below. 67 M being managed for presumed sepsis secondary to UTI , Post-renal PRASAD, R hydronephrosis, recurrent and obstructive nephrolithiasis NO new complains on eval Still having R flank pain Physical exam: VSS, Obese, in mild painful distress, chest is CTAB, HS S1, S2 only, Abdomen is benign, R CVA tenderness, No pedal edema Labs and Imaging reviewed: Continue current care, continue to hold home ARB/HCTZ. For surgery today per Urology, follow recommendations Rest of details as in the resident physician's documentation
--- NOTE | 2017-11-22 20:22 | Anesthesia Evaluation PreOp ---
Date of Encounter: 11/22/17 Time of Encounter: 20:20 - Past History Planned Operation: Cystoscopy, Right Ureteral Stent Placement Cardiac History: HTN, Hyperlipidemia Pulmonary History: Asthma, BON Dx (CPAP) Other Medical History: Renal (kidney stones), Diabetes Type II, GERD Anesthesia History: No Prior Anesthetic Complications, Past Anesthesia Alcohol Use: none Drug use: none Medications and Allergies Escitalopram [Lexapro] 20 mg PO DAILY 05/28/15 [History] Omeprazole [PriLOSEC] 20 mg PO DAILY 05/28/15 [History] Valsartan/Hydrochlorothiazide [Diovan Hct 320-12.5 mg Tab] 1 each PO DAILY 05/28 [History] GlipiZIDE XL (24 HR) [Glucotrol XL] 10 mg PO DAILY 01/28/16 [History] Atorvastatin Calcium [Lipitor] 80 mg PO HS 11/22/17 [History] Cyclobenzaprine [Flexeril] 10 mg PO TID 11/22/17 [History] Exenatide Microspheres [Bydureon Pen] 2 mg SQ QWEEK 11/22/17 [History] Meloxicam [Mobic] 15 mg PO DAILY 11/22/17 [History] Oxycodone HCl/Acetaminophen [Percocet 5-325 mg Tablet] 1 tab PO BID PRN [History] Potassium Chloride [K-Tab ER] 40 meq PO BID 11/22/17 [History] SitaGLIPtin [Januvia] 100 mg PO DAILY 11/22/17 [History] 3 Allergy/AdvReac Type Severity Reaction Status Date / Time Amoxicillin AdvReac Hives Verified 11/21/17 23:05 ampicillin AdvReac Hives Verified 11/21/17 23:05 aspirin [ASA] AdvReac See Verified 11/21/17 23:05 Comments celecoxib [From Celebrex] AdvReac Nausea Verified 11/21/17 23:05 cephalexin [From Keflex] AdvReac Chest Pain Verified 11/21/17 23:05 lisinopril AdvReac UNKNOWN Verified 11/21/17 23:05 metformin AdvReac Diarrhea Verified 11/21/17 23:05 Penicillins AdvReac Hives Verified 11/21/17 23:05 - Meds/Allergy Pre-op Review Medications Reviewed: Yes Allergies Reviewed: Yes Beta Blockers on Current Med List: No Anesthesia Results - Labs 11/22/17 05:37 11/22/17 05:37 - Imaging EKG: report reviewed (01/25/2016 SINUS RHYTHM) Anesthesia Exam Vital Signs/O2 Sat/Glucose, Most Recent Temp Pulse Resp BP Pulse Ox 98.4 F 96 18 116/60 92 11/22/17 19:00 11/22/17 19:00 11/22/17 19:00 11/22/17 19:00 11/22/17 19:00 Blood Glucose* 125 Height: 5'5''/1.65m Weight: 221 lbs/100 kg - HEENT Pupil (Motor): EOMI Mallampati: II Teeth: Normal Oral Opening: Greater than 3 - AGRICULTURAL SYSTEMS SPECIALIST LOC: Oriented AGRICULTURAL SYSTEMS SPECIALIST Motor: Normal RUE, Normal LUE, Normal RLE, Normal LLE, Normal Face AGRICULTURAL SYSTEMS SPECIALIST Sensory: Normal: RUE, LUE, RLE, LLE, Face - Cardiac Rhythm: Regular Murmur: None - Pulmonary Breath Sounds: bilateral Clear Respiratory Effort: Symmetrical Anesthesia Assess/Plan ASA Score: 3 Modified [place] Scale for Level of Consciousness: Cooperative, oriented, and tranquil Anesthetic Plan: General Monitoring Plan: Standard Monitors Recovery Plan: PACU
[2017-11-22] MEDS ORDERED: *HR* FentaNYL (PF) 100 MCG/2 ML VIAL IVP PRN (20:23)
[2017-11-22] MEDS ORDERED: *HR* FentaNYL (PF) 100 MCG/2 ML VIAL ONE (20:39)
[2017-11-22] MEDS ORDERED: Lidocaine -MPF 2% 2 ML VIAL ONE (20:39)
[2017-11-22] MEDS ORDERED: *HR* Propofol 200 MG/20 ML VIAL IVP ONE (20:39)
[2017-11-22] MEDS ORDERED: *HR* Midazolam HCl 2 MG/2 ML VIAL ONE (20:39)
[2017-11-22] MEDS ORDERED: *HR* Succinylcholine 200 MG/10 ML VIAL IVP ONE (21:02)
--- NOTE | 2017-11-22 21:09 | Operative Note ---
Date of procedure: 11/22/17 Pre-op diagnosis: Right UPJ stone Post-op diagnosis: same Procedure: Cystoscopy, right ureteral stent placement Implants: 6-Bruneian by 26 cm double-J stent Complications: none Anesthesia: BETHA Surgeon: Brendan Ragland Was there an catering administrative assistant present: No Estimated blood loss (cc): 0 Specimen: none Condition: stable Disposition: PACU Procedure in Detail: Indications: Mr. Chen is a 67-year-old male who has a history of nephrolithiasis. He had a CT which showed a right UPJ stone. He elected to undergo a cystoscopy and right ureteral stent placement. He was aware of the risks of the procedure including but not limited to bleeding, infection, injury to other structures, need for further procedures, stent irritation, need for nephrostomy tube, need for open repair, risks otherwise unforeseen, and the risk of anesthesia. He is willing to proceed. Procedure in Detail: After informed consent was obtained the patient was brought back to the operating room and placed in supine position. A time out was performed. General anesthesia was administered and an endotracheal tube was placed. He was then placed in the lithotomy position. He was prepped and draped in the usual sterile fashion. Cystoscopy was performed. The anterior urethra was normal. There was no evidence of bladder tumors. The ureteral orifices were in the normal orthotopic position. There was no duplication of the ureteral orifices. The glide wire was placed in the right ureteral orifice. The wire was then brought up into the kidney under fluoroscopic guidance. A 6 [place] by 26cm JJ stent was then placed. The dangle strings were removed. The bladder was drained. The patient was then awakened from general anesthesia and brought to recovery room in good condition. All sponge, needle, and instrument counts were correct.
--- NOTE | 2017-11-22 22:09 | Anesthesia Evaluation Post Op ---
Date of Encounter: 11/22/17 Time of Encounter: 22:09 - Vital Signs Vital Signs: Vital Signs/O2 Sat, Most Current Temp Pulse Resp BP Pulse Ox 100.7 F H 99 18 137/77 97 11/22/17 22:05 11/22/17 22:05 11/22/17 22:05 11/22/17 21:55 11/22/17 22:05 - Lungs Lungs: Rhonchi - Airway Airway: Non-obstructed - Cardiovascular Regular Rate - Mental Status Mental Status: Alert & Oriented, Answers Appropriately - Pain Pain Scale: 0 Pain Scale used: Numeric (1 - 10) - Nausea Vomiting Nausea Vomiting: Not Present - Hydration Hydration: NPO, Has not voided - Discharge PostOp Status: Transfer Patient to floor
[2017-11-23] MEDS: 0.9 % Sodium Chloride 1,000 ML IVC SCH (00:32)
[2017-11-23] MEDS ORDERED: Levofloxacin 750 MG/150 ML 750 MG/150 ML BAG IVPB SCH (01:00)
[2017-11-23] MEDS: Insulin LISPRO 300 UNITS/3 ML VIAL SQ SCH (01:01)
--- NOTE | 2017-11-23 05:30 | Electrocardiograph Report ---
[address] [address] Test Date: 2017-11-21 Pat Name: Jad Chen Department: 102 Room: [facility] Gender: M Design Painter: CRISTA : 1950 Requested By: [id number] Order Number: [id number] Reading MD: Pedro Christine Measurements Intervals [place] Rate: 107 P: 52 [place]: 143 QRS: 68 QRSD: 90 T: 43 QT: 344 QTc: 406 Interpretive Statements SINUS TACHYCARDIA Electronically Signed On 11-23-2017 5:28:31 EDT by Pedro Christine
[2017-11-23 05:59] LABS: Basophils % 0.2 %; Hematocrit 32.4 % (37.5-50.1); Hemoglobin 10.9 g/dL (12.9-16.9); Immature Granulocytes % 1.2 % (0-4); Lymphocytes # 0.6 K/mcL (0.6-4.6); Lymphocytes % 5.1 %; Mean Corpuscular HGB Conc 33.6 g/dL (31.6-35.5); Mean Corpuscular Hemoglobin 30.5 pg (28.0-33.3); Mean Corpuscular Volume 90.8 fL (83.0-100.0); Mean Platelet Volume 11.2 fL (9.4-12.4); Monocytes # 0.4 K/mcL (0.0-1.3); Monocytes % 3.7 %; Neutrophils # 10.8 K/mcL (1.6-8.9); Nucleated Red Blood Cells 0.2 /100 WBC (0); Platelet Count 210 K/mcL (140-400); Red Blood Count 3.57 M/mcL (4.19-5.50); Red Cell Distribution Width 12.8 % (11.5-14.5); Segmented Neutrophils % 89.8 %
[2017-11-23 06:17] LABS: Calcium 8.1 mg/dL (8.6-10.3); Potassium 4.6 mEq/L (3.5-5.1)
--- NOTE | 2017-11-23 06:41 | Urology Progress Note ---
Date of Encounter: 11/23/17 Time of Encounter: 06:39 - Assessment and Plan (1) Acute kidney injury Current Visit: Yes Status: Acute Assessment and plan: Creatinine improving. (2) Calculus of kidney Current Visit: Yes Status: Acute Assessment and plan: Doing well after right ureteral stent placement. D/C home when clear per hospitalist. D/c antibiotics as culture was negative. I will arrange for shockwave lithotripsy as an outpatient. Progress Note Narrative: Doing well today. No issues overnight. Urine culture was negative. Objective Initial Vital Signs Temp Pulse Resp BP Pulse Ox 99.3 F 113 16 176/98 96 11/21/17 23:03 11/21/17 23:03 11/21/17 23:03 11/21/17 23:03 11/21/17 23:03 - General physical appearance Present: well developed, well nourished, no distress - Respiratory Present: normal respiratory effort - Abdomen Present: soft - Labs 11/23/17 03:44 11/23/17 03:44 Diabetes panel 11/23/17 Range/Units 03:44 Sodium 134 L (136-145) mEq/L Potassium 4.6 (3.5-5.1) mEq/L Chloride 103 (98-107) mEq/L Carbon Dioxide 19 L (23-29) mEq/L BUN 24 H (8-23) mg/dL Creatinine 1.70 H (0.70-1.30) mg/dL Glucose 183 H (70-105) mg/dL Calcium 8.1 L (8.6-10.3) mg/dL Calcium panel 11/23/17 Range/Units 03:44 Calcium 8.1 L (8.6-10.3) mg/dL Pituitary panel 11/23/17 Range/Units 03:44 Sodium 134 L (136-145) mEq/L Potassium 4.6 (3.5-5.1) mEq/L Chloride 103 (98-107) mEq/L Carbon Dioxide 19 L (23-29) mEq/L BUN 24 H (8-23) mg/dL Creatinine 1.70 H (0.70-1.30) mg/dL Glucose 183 H (70-105) mg/dL Calcium 8.1 L (8.6-10.3) mg/dL Adrenal panel 11/23/17 Range/Units 03:44 Sodium 134 L (136-145) mEq/L Potassium 4.6 (3.5-5.1) mEq/L Chloride 103 (98-107) mEq/L Carbon Dioxide 19 L (23-29) mEq/L BUN 24 H (8-23) mg/dL Creatinine 1.70 H (0.70-1.30) mg/dL Glucose 183 H (70-105) mg/dL Calcium 8.1 L (8.6-10.3) mg/dL - VTE Documentation of Mechanical Device: Intermittent pneumatic compression device Consult Discharge Plan - Plan Referrals: Sidney Leger MD [Primary Care Provider] -
[2017-11-23] MEDS ORDERED: Dextrose Gel 15 GM/37.5 ML TUBE PO PRN ×2 (06:43)
[2017-11-23] MEDS ORDERED: *HR* Dextrose 50 % in Water (Syg) 50 ML SYRINGE IVP PRN (06:43)
[2017-11-23] MEDS ORDERED: OXYCODONE Oral CONC 10 MG/0.5 ML ORAL.SYG SL PRN ×2 (06:43)
[2017-11-23] MEDS ORDERED: D5% in Water 1,000 ML IVC PRN (06:43)
[2017-11-23] MEDS ORDERED: Ondansetron 4 MG/2 ML VIAL IVP PRN (06:43)
[2017-11-23] MEDS ORDERED: 0.9 % Sodium Chloride 1,000 ML IVC SCH (06:43)
[2017-11-23] MEDS ORDERED: Naloxone 0.4 MG/ML INJ IVP PRN (06:43)
--- NOTE | 2017-11-23 08:33 | Discharge Summary ---
<Fracisco Pozo - Last Filed: 11/23/17 14:41> - NOTES TO OUTPATIENT PROVIDER Notes to Outpatient Provider: Patient presented to ED with right flank pain, admitted with sepsis and obstructing right sided nephrolithiasis, Urology consulted and placed right ureteral stent. Urine culture negative and antibiotics discontiued. Discharged to follow up with Urology for shockwave lithotripsy as outpatient. Orders not resulted at time of discharge: Pending orders 11/22/17 06:50 Culture,Urine [RM] Stat Date of Encounter: 11/23/17 Time of Encounter: 08:33 - Discharge Diagnosis (1) Ureteral stone Priority: Primary Status: Acute Assessment and Plan: History of kidney stones. Currently on hctz. Urology consulted and placed right ureteral stent for obstructing stone. Discontinued antibiotics as urine culture negative. Patient to follow up with Urology for possible lithotripsy. (2) Acute kidney injury Priority: Primary Status: Acute Assessment and Plan: Secondary to right sided nephrolithiasis with obstruction. Improving, discontinued IV fluids, oral hydration, will resume home bp meds and recheck Cr prior to discharge. Cr at discharge (3) Sepsis Priority: Primary Status: Resolved Assessment and Plan: Patient was tachycardic, with elevated white blood cell count on admission. Found to have right nephrolithiasis with obstruction and hydronephrosis Urine culture negative. Levaquin completed d3. Qualifiers: Sepsis type: sepsis due to unspecified organism Qualified Code(s): A41.9 - Sepsis, unspecified organism (4) Diabetes Priority: Secondary Status: Chronic Assessment and Plan: Last hemoglobin A1c was 8.8. Patient is on oral hypoglycemic agents outpatient. Continue insulin sliding scale and resume home oral meds on discharge. Qualifiers: Diabetes mellitus type: type 2 Diabetes mellitus exterminator insulin use: without retirement use Diabetes mellitus complication status: without complication Qualified Code(s): E11.9 - Type 2 diabetes mellitus without complications (5) Hypertension Priority: Secondary Status: Chronic Assessment and Plan: history of hypertension, bp controlled today. Will resume bp meds and recheck Cr prior to discharge. Qualifiers: Hypertension type: essential hypertension Qualified Code(s): I10 - Essential (primary) hypertension (6) BON on CPAP Priority: Secondary Status: Chronic Assessment and Plan: CPAP in evenings. Hospital course: Mr. Chen is a 67 year old male presented to ED with right sided flank pain with radiation ro right groin and complaint of nausea and fever. Patient was tachyacrdic and leukocytosis on arival and found to have right nephrolithiasis with obsturction and hydronephrosis. Also had PRASAD on admission. Urology consulted and completed ureteral stent with improvement and resolution of pain. Kidney function continued improving. Patient continued to have some hematuria on discharge. Follow up with Urology for possible lithotripsy as outpatient. On discharge patient denies pain, fevers, chills, sweats, or back pain. Does have some hematuria. Discharge discussed with: patient - Time Spent with Patient Total time spent providing and/or coordinating discharge services: - Discharge Medications Home Medications: Escitalopram [Lexapro] 20 mg PO DAILY 05/28/15 [History] Omeprazole [PriLOSEC] 20 mg PO DAILY 05/28/15 [History] Valsartan/Hydrochlorothiazide [Diovan Hct 320-12.5 mg Tab] 1 each PO DAILY 05/28 [History] GlipiZIDE XL (24 HR) [Glucotrol XL] 10 mg PO DAILY 01/28/16 [History] Atorvastatin Calcium [Lipitor] 80 mg PO HS 11/22/17 [History] Cyclobenzaprine [Flexeril] 10 mg PO TID 11/22/17 [History] Exenatide Microspheres [Bydureon Pen] 2 mg SQ QWEEK 11/22/17 [History] Meloxicam [Mobic] 15 mg PO DAILY 11/22/17 [History] Potassium Chloride [K-Tab ER] 40 meq PO BID 11/22/17 [History] SitaGLIPtin [Januvia] 100 mg PO DAILY 11/22/17 [History] Allergies/Adverse Reactions: 3 Allergy/AdvReac Type Severity Reaction Status Date / Time Amoxicillin AdvReac Hives Verified 11/21/17 23:05 ampicillin AdvReac Hives Verified 11/21/17 23:05 aspirin [ASA] AdvReac See Verified 11/21/17 23:05 Comments celecoxib [From Celebrex] AdvReac Nausea Verified 11/21/17 23:05 cephalexin [From Keflex] AdvReac Chest Pain Verified 11/21/17 23:05 lisinopril AdvReac UNKNOWN Verified 11/21/17 23:05 metformin AdvReac Diarrhea Verified 11/21/17 23:05 Penicillins AdvReac Hives Verified 11/21/17 23:05 Date of admission: 11/22/17 02:10 Primary care physician: Sidney Leger MD Consults: 11/22/17 04:38 Consult to Urology [CONS] Routine Consulting Provider: Urology Stephanie Reason for Consult: Ureteral stone. Dr Schroeder called by ER Call Completed: Yes Discharging clinician: Fracisco Garduno) Anticipated date of discharge: 11/23/17 - Constitutional Vitals: Temp Pulse Resp BP Pulse Ox 97.7 F 90 15 139/76 95 11/23/17 07:00 11/23/17 07:00 11/23/17 07:00 11/23/17 07:00 11/23/17 07:00 General appearance: Present: A&O X 3, pleasant, no acute distress, obese, answers questions appropriately - Head Head exam: Present: atraumatic, normal inspection, normocephalic - Eye Eye exam: Present: EOMI, normal appearance - ENT ENT exam: Present: mucous membranes moist, normal exam - Neck Neck exam general surgery: Present: full ROM, normal inspection, supple, trachea midline. Absent: lymphadenopathy - Respiratory Respiratory exam: Present: CTAB. Absent: rales, rhonchi, wheezes - Cardiovascular Cardiovascular exam: Present: RRR - GI/Abdominal GI/Abdominal exam: Present: normal bowel sounds, soft. Absent: tenderness Additional comments: kidney punch negative bilaterally - Extremities Exam Extremities exam: Present: full ROM, normal inspection, warm, radial pulses palpable and symmetrical - Skin Skin exam: Present: dry, intact, normal color, warm - Patient Status Disposition: Home, Self-Care Condition: Good Functional capacity at discharge: independent ambulation Overall status at discharge: patient is progressing back to baseline - Discharge Instructions Instructions: Kidney Stones (GEN) Follow Up With: Sidney Leger MD [Primary Care Provider] - 11/29/17 9:45 am - Diet and Activity Activity: increase activity as tolerated Diet: diabetic diet, low salt diet - VTE Documentation of Mechanical Device: Intermittent pneumatic compression device <Andreas Azevedo - Last Filed: 11/23/17 16:53> Orders not resulted at time of discharge: Pending orders 11/22/17 06:50 Culture,Urine [RM] Stat Date of Encounter: 11/23/17 - Discharge Diagnosis (1) Acute kidney injury Status: Acute (2) Sepsis Status: Resolved Qualifiers: Sepsis type: sepsis due to unspecified organism Qualified Code(s): A41.9 - Sepsis, unspecified organism (3) Ureteral stone Status: Acute (4) Diabetes Status: Chronic Qualifiers: Diabetes mellitus type: type 2 Diabetes mellitus retirement insulin use: without retirement use Diabetes mellitus complication status: without complication Qualified Code(s): E11.9 - Type 2 diabetes mellitus without complications (5) Hypertension Status: Chronic Qualifiers: Hypertension type: essential hypertension Qualified Code(s): I10 - Essential (primary) hypertension (6) BON on CPAP Status: Chronic Hospital course: Mr. Chen is a 67 year old male - Time Spent with Patient Total time spent providing and/or coordinating discharge services: Less than 30 minutes Date of admission: 11/22/17 02:10 Primary care physician: Sidney Leger MD Consults: 11/22/17 04:38 Consult to Urology [CONS] Routine Consulting Provider: Urology Stephanie Reason for Consult: Ureteral stone. Dr Schroeder called by ER Call Completed: Yes - Constitutional Vitals: Temp Pulse Resp BP Pulse Ox 97.7 F 90 18 147/70 99 11/23/17 07:00 11/23/17 11:00 11/23/17 11:00 11/23/17 11:00 11/23/17 11:00 - Attending Attestation I examined this patient and my medical decision-making was reviewed with the Resident Physician on 11/23/17. I agree with the documented findings, disposition and treatment plan as described except to the extent set forth below.
[2017-11-23 09:50] LABS: Calcium 8.1 mg/dL (8.6-10.3); Potassium 4.6 mEq/L (3.5-5.1)
[2017-11-23] MEDS ORDERED: NON-FORMULARY MEDICATION 1 EACH EACH (Valsartan/Hydrochlorothiazide [Diovan Hct 320-12.5 M PO SCH (10:15)
[2017-11-23 11:46] VITALS: BP 147/70
[2017-11-23] MEDS ORDERED: Insulin LISPRO 300 UNITS/3 ML VIAL SQ SCH (12:00)
[2017-11-24] MEDS ORDERED: Levofloxacin 750 MG/150 ML 750 MG/150 ML BAG IVPB SCH ×2 (05:00)
[2017-11-24] MEDS ORDERED: Valsartan 160 MG TABLET PO SCH (10:30)
[2017-11-24] MEDS ORDERED: hydroCHLOROthiazide 25 MG TABLET PO SCH (10:30)
== END 2017-11-23 16:40 | disposition home or self-care (01) | DRG 872 ==
LOC: 3ANU 23:03 → EMEROO 23:03 → 3ANU 11-22 01:47 → 2NENU 11-22 03:41
PROVIDERS: ADMIT Internal Medicine; ATTEND Internal Medicine

== ENCOUNTER 2018-05-02 03:05 | Observation (INO) ==
[2018-05-02] MEDS ORDERED: Ondansetron 4 MG/2 ML VIAL IVP ONE (03:32)
[2018-05-02] MEDS ORDERED: *HR* FentaNYL (PF) 100 MCG/2 ML VIAL IVP ONE ×2 (03:32→05:35)
[2018-05-02] MEDS ORDERED: Ketorolac 15 MG/ML VIAL IVP ONE (03:32)
--- NOTE | 2018-05-02 03:39 | Emergency Department Note ---
Disposition Clinical Impression: PRASAD (acute kidney injury), Ureterolithiasis, Renal colic on right side, UPJ ( ureteropelvic junction) obstruction Disposition: Admitted As Inpatient Condition: Fair Referrals: Sidney Leger MD [Primary Care Provider] - Abdominal Pain HPI - General Stated Complaint: flank pain Time Seen by Provider: 05/02/18 03:13 Source: patient, EMS Mode of arrival: EMS Limitations: no limitations Nursing Notes Reviewed: Yes Vital Signs Reviewed: Yes - History of Present Illness Pt Subjective Complaint: flank pain Onset (ago): hour(s) Consistency: constant Location: RLQ, R flank Pain Severity: severe Pain Scale: 10 Quality: stabbing, sharp Radiation: none Migration to: R flank Improves with: nothing Worsens with: nothing Context: history of similar episodes Associated symptoms: Reports: nausea, vomiting. Denies: diarrhea, fever, chills , constipation, dysuria, hematemesis, hematochezia, melena, hematuria, anorexia , syncope Treatments prior to arrival: none - Related Data Home Medications Medication Instructions Recorded Confirmed Escitalopram [Lexapro] 20 mg PO DAILY 05/28/15 12/01/17 Valsartan/Hydrochlorothiazide 1 each PO DAILY 05/28/15 12/01/17 [Diovan Hct 320-12.5 mg Tab] GlipiZIDE XL (24 HR) [Glucotrol XL] 10 mg PO DAILY 01/28/16 12/01/17 Atorvastatin Calcium [Lipitor] 80 mg PO HS 11/22/17 12/01/17 Cyclobenzaprine [Flexeril] 10 mg PO TID 11/22/17 12/01/17 Exenatide Microspheres [Bydureon 2 mg SQ QWEEK 11/22/17 12/01/17 Pen] Meloxicam [Mobic] 15 mg PO DAILY 11/22/17 12/01/17 Potassium Chloride [K-Tab ER] 40 meq PO BID 11/22/17 12/01/17 SitaGLIPtin [Januvia] 100 mg PO DAILY 11/22/17 12/01/17 OxyCODONE/APAP 5/325 [Percocet 1 tab PO BID PRN 12/01/17 12/01/17 5/325 MG] Previous Rx's Medication Instructions Recorded Docusate [Colace] 100 mg PO BID #60 capsule 12/01/17 HYDROcodone/Acet 5/325 mg [[place] 1 tab PO Q4H PRN 4 Days #15 tab 12/01/17 5-325 mg] Allergies Allergy/AdvReac Type Severity Reaction Status Date / Time Amoxicillin AdvReac Hives Verified 11/21/17 23:05 ampicillin AdvReac Hives Verified 11/21/17 23:05 aspirin [ASA] AdvReac See Verified 11/21/17 23:05 Comments celecoxib [From Celebrex] AdvReac Nausea Verified 11/21/17 23:05 cephalexin [From Keflex] AdvReac Chest Pain Verified 11/21/17 23:05 lisinopril AdvReac UNKNOWN Verified 11/21/17 23:05 metformin AdvReac Diarrhea Verified 11/21/17 23:05 Penicillins AdvReac Hives Verified 11/21/17 23:05 All systems ED: reviewed and negative except as stated. Review of Systems: As Per HPI Constitutional: Denies: fever, chills, weakness Cardiovascular: Denies: chest pain, palpitations, dyspnea on exertion Respiratory: Denies: cough, dyspnea, wheezes Gastrointestinal: Reports: as per HPI, abdominal pain, nausea, vomiting. Denies : diarrhea, constipation Genitourinary: Denies: urgency, dysuria, frequency, hematuria Neurological: Denies: headache, weakness, confusion, vertigo Hematological/Lymphatic: Denies: easy bleeding, easy bruising Abdominal Pain PMH - Past Medical History Medical history: Reports: diabetes, GERD, hypertension, kidney stones Male Surgical History: Reports: orthopedic, other, other Psychiatric history: Reports: anxiety, depression - Social History Smoking status: Never smoker Alcohol use: Reports: none Drug use: Reports: none Physical Exam - General Limitations: no limitations General appearance: alert, in no apparent distress - Head Head exam: atraumatic, normocephalic, normal inspection - Eye Eye exam: Present: normal appearance, PERRL. Absent: scleral icterus, conjunctival injection, periorbital swelling - ENT ENT exam: mucous membranes moist - Neck Neck exam: Present: normal inspection, full ROM, trachea midline - Chest Chest inspection: Present: normal inspection - Respiratory Respiratory exam: Present: normal lung sounds bilaterally. Absent: respiratory distress - Cardiovascular Cardiovascular exam: Present: regular rate, normal rhythm - Abdominal Exam Abdominal exam: Present: soft, Non-Tender, distention. Absent: guarding, rebound, rigidity, ascites, mass, pulsatile mass - Extremities Exam Extremities exam: Present: normal inspection, full ROM - Back Exam Back exam: Present: normal inspection, CVA tenderness (R). Absent: CVA tenderness (L) - Neurological Exam Neurological exam: Present: alert, oriented X3, CN II-XII intact, normal gait - Psychiatric Psychiatric exam: Present: normal affect, normal mood - Skin Skin exam: Present: warm, dry, intact Course Course Narrative: Patient with history of recurrent kidney stones presents from home by squad for evaluation of right lower quadrant abdominal pain, right flank pain. He has had nausea and "dry heaves". He denies fever chills, urinary retention and hematuria, urinary urgency, hesitancy or frequency. He took a Percocet at 12:30 which did not help so he ultimately called EMS. Labs, meds and CT ordered. Case discussed with Dr. Mehta. He has had face to face time with the patient and agrees with the assessment and plan. Pain was better, now its back. Additional meds ordered. BP and Sats stable. Nausea much better. CT shows 11x7mm obstructing stone in right ureter at the UPJ. Other stones in the pelvis and intrarenal. Urine normal - Consultations Consultation #1: Case discussed with Dr. Pate. He states that he will consult on the patient and to admit the patient to the hospitalist. Time: 05:21 Consultation #2: Hospitalist paged. Discussed case with Dr. Bryant. He requests Blood and Urine cultures and a dose of Levaquin. These have been ordered. Time: 05:24 Vital Signs Temperature 97.8 F 05/02/18 03:08 Pulse Rate 84 05/02/18 03:08 Respiratory Rate 18 05/02/18 03:08 Blood Pressure 187/89 05/02/18 03:08 O2 Sat by Pulse Oximetry 97 05/02/18 03:08 Temperature 97.8 F 05/02/18 03:08 Pulse Rate 84 05/02/18 05:09 Respiratory Rate 18 05/02/18 05:09 Blood Pressure 162/76 05/02/18 05:09 O2 Sat by Pulse Oximetry 97 05/02/18 05:09 Oxygen Delivery Oxygen Delivery Room Air Abdominal Pain - Medical Records Medical records reviewed: Yes I reviewed the patient's medical records. - Lab Data Lab results reviewed: Yes I reviewed the patient's lab results. Lab results narrative: Laboratory Last Values WBC 17.4 K/mcL (4.3-11.1) H 05/02/18 03:40 RBC 4.24 M/mcL (4.19-5.50) 05/02/18 03:40 Hgb 12.8 g/dL (12.9-16.9) L 05/02/18 03:40 Hct 38.1 % (37.5-50.1) 05/02/18 03:40 MCV 89.9 fL (83.0-100.0) 05/02/18 03:40 MCH 30.2 pg (28.0-33.3) 05/02/18 03:40 MCHC 33.6 g/dL (31.6-35.5) 05/02/18 03:40 RDW 12.3 % (11.5-14.5) 05/02/18 03:40 Plt Count 293 K/mcL (140-400) 05/02/18 03:40 MPV 10.0 fL (9.4-12.4) 05/02/18 03:40 Immature Gran % 0.4 % (0-4) 05/02/18 03:40 Seg Neutrophils % 85.7 % 05/02/18 03:40 Lymphocytes % 7.8 % 05/02/18 03:40 Monocytes % 5.5 % 05/02/18 03:40 Eosinophils % 0.2 % 05/02/18 03:40 Basophils % 0.4 % 05/02/18 03:40 Neutrophils # 14.9 K/mcL (1.6-8.9) H 05/02/18 03:40 Lymphocytes # 1.4 K/mcL (0.6-4.6) 05/02/18 03:40 Monocytes # 1.0 K/mcL (0.0-1.3) 05/02/18 03:40 Eosinophils # 0.0 K/mcL (0.0-0.6) 05/02/18 03:40 Basophils # 0.1 K/mcL (0.0-0.2) 05/02/18 03:40 Sodium 135 mEq/L (136-145) L 05/02/18 03:40 Potassium 3.9 mEq/L (3.5-5.1) 05/02/18 03:40 Chloride 98 mEq/L (98-107) 05/02/18 03:40 Carbon Dioxide 26 mEq/L (23-29) 05/02/18 03:40 BUN 26 mg/dL (8-23) H 05/02/18 03:40 Creatinine 1.52 mg/dL (0.70-1.30) H 05/02/18 03:40 Est GFR ( Amer) 56 (> 60) L 05/02/18 03:40 Est GFR (Non-Af Amer) 46 (> 60) L 05/02/18 03:40 BUN/Creatinine Ratio 17 (6-26) 05/02/18 03:40 Glucose 174 mg/dL (70-105) H 05/02/18 03:40 Calculated Osmolality 289 (280-300) 05/02/18 03:40 Calcium 8.7 mg/dL (8.6-10.3) 05/02/18 03:40 Urine Color Yellow (Yellow) 05/02/18 03:15 Urine Clarity Clear (Clear) 05/02/18 03:15 Urine pH 5.5 pH Units (5.0-8.0) 05/02/18 03:15 Ur Specific [place] 1.020 (1.010-1.025) 05/02/18 03:15 Urine Protein Negative mg/dL (Neg-Trace) 05/02/18 03:15 Urine Glucose (UA) Normal mg/dL (Normal) 05/02/18 03:15 Urine Ketones Negative mg/dL (Negative) 05/02/18 03:15 Urine Blood Negative (Negative) 05/02/18 03:15 Urine Nitrite Negative (Negative) 05/02/18 03:15 Urine Bilirubin Negative (Negative) 05/02/18 03:15 Urine Urobilinogen Normal mg/dL (Normal) 05/02/18 03:15 Ur Leukocyte Esterase Negative (Negative) 05/02/18 03:15 Ur Culture Indicated? NO (NO) 05/02/18 03:15 Result diagrams: 05/02/18 03:40 05/02/18 03:40 Lab Results 05/02/18 05/02/18 05/02/18 Range/Units 03:15 03:40 03:40 WBC 17.4 H (4.3-11.1) K/mcL RBC 4.24 (4.19-5.50) M/mcL Hgb 12.8 L (12.9-16.9) g/dL Hct 38.1 (37.5-50.1) % MCV 89.9 (83.0-100.0) fL MCH 30.2 (28.0-33.3) pg MCHC 33.6 (31.6-35.5) g/dL RDW 12.3 (11.5-14.5) % Plt Count 293 (140-400) K/mcL MPV 10.0 (9.4-12.4) fL Immature Gran % 0.4 (0-4) % Seg Neutrophils % 85.7 % Lymphocytes % 7.8 % Monocytes % 5.5 % Eosinophils % 0.2 % Basophils % 0.4 % Neutrophils # 14.9 H (1.6-8.9) K/mcL Lymphocytes # 1.4 (0.6-4.6) K/mcL Monocytes # 1.0 (0.0-1.3) K/mcL Eosinophils # 0.0 (0.0-0.6) K/mcL Basophils # 0.1 (0.0-0.2) K/mcL Sodium 135 L (136-145) mEq/L Potassium 3.9 (3.5-5.1) mEq/L Chloride 98 (98-107) mEq/L Carbon Dioxide 26 (23-29) mEq/L BUN 26 H (8-23) mg/dL Creatinine 1.52 H (0.70-1.30) mg/dL Est GFR ( Amer) 56 L (> 60) Est GFR (Non-Af Amer) 46 L (> 60) BUN/Creatinine Ratio 17 (6-26) Glucose 174 H (70-105) mg/dL Calculated Osmolality 289 (280-300) Calcium 8.7 (8.6-10.3) mg/dL Urine Color Yellow (Yellow) Urine Clarity Clear (Clear) Urine pH 5.5 (5.0-8.0) pH Units Ur Specific [place] 1.020 (1.010-1.025) Urine Protein Negative (Neg-Trace) mg/dL Urine Glucose (UA) Normal (Normal) mg/dL Urine Ketones Negative (Negative) mg/dL Urine Blood Negative (Negative) Urine Nitrite Negative (Negative) Urine Bilirubin Negative (Negative) Urine Urobilinogen Normal (Normal) mg/dL Ur Leukocyte Esterase Negative (Negative) Ur Culture Indicated? NO (NO) - Radiology Data Radiology results reviewed: Yes I reviewed the patient's radiology results. Abdomen/Pelvis CT 05/02/18 04:12 IMPRESSION: There is a calculus at the right ureteropelvic junction with moderate hydronephrosis. There is also a calculus dependently in the right renal pelvis and there are multiple bilateral intrarenal calculi. D/ / Pravin Mtz MD / Pravin Mtz MD Interpreting Provider: Pravin Mtz MD Attestation Statement - Attestation Attestation: Dr Mehta note: Pt seen in conjunction w/ JENNIFER Olmedo; please see her charting for complete documentation; I spent face to face time w/ the pt and agree w/ the pt 's treatment and disposition; n/v/ pain improved ; ct scan results reviewed; hospitalist admitted w/ urology consult; sx improved prior to admission;
[2018-05-02 03:48] LABS: Bilirubin,Urine Negative (Negative); Blood,Urine Negative (Negative); Clarity,Urine Clear (Clear); Color,Urine Yellow (Yellow); Glucose,Urine (UA) Normal (Normal); Ketones,Urine Negative (Negative); Leukocyte Esterase,Urine Negative (Negative); Nitrite,Urine Negative (Negative); PH,Urine 5.5 pH Units (5.0-8.0); Protein,Urine Negative (Neg-Trace); Urobilinogen,Urine Normal (Normal)
[2018-05-02 03:56] LABS: Basophils # 0.1 K/mcL (0.0-0.2); Basophils % 0.4 %; Eosinophils % 0.2 %; Hematocrit 38.1 % (37.5-50.1); Hemoglobin 12.8 g/dL (12.9-16.9); Immature Granulocytes % 0.4 % (0-4); Lymphocytes # 1.4 K/mcL (0.6-4.6); Lymphocytes % 7.8 %; Mean Corpuscular HGB Conc 33.6 g/dL (31.6-35.5); Mean Corpuscular Hemoglobin 30.2 pg (28.0-33.3); Mean Corpuscular Volume 89.9 fL (83.0-100.0); Monocytes % 5.5 %; Neutrophils # 14.9 K/mcL (1.6-8.9); Platelet Count 293 K/mcL (140-400); Red Blood Count 4.24 M/mcL (4.19-5.50); Red Cell Distribution Width 12.3 % (11.5-14.5); Segmented Neutrophils % 85.7 %
[2018-05-02 04:15] LABS: Calcium 8.7 mg/dL (8.6-10.3); Potassium 3.9 mEq/L (3.5-5.1)
[2018-05-02] MEDS ORDERED: Levofloxacin 750 MG/150 ML 750 MG/150 ML BAG IVPB ONE (05:33)
[2018-05-02] MEDS ORDERED: 0.9 % Sodium Chloride 1,000 ML IVC ONE (05:35)
[2018-05-02] MEDS ORDERED: Naloxone 0.4 MG/ML INJ IVP PRN (07:20)
[2018-05-02] MEDS ORDERED: Dextrose Gel 15 GM/37.5 ML TUBE PO PRN ×2 (07:58)
[2018-05-02] MEDS ORDERED: *HR* Dextrose 50 % in Water (Syg) 50 ML SYRINGE IVP PRN (07:58)
[2018-05-02] MEDS ORDERED: D5% in Water 1,000 ML IVC PRN (07:58)
[2018-05-02] MEDS ORDERED: Ondansetron 4 MG/2 ML VIAL IVP PRN (08:02)
--- NOTE | 2018-05-02 08:05 | Internal Med History&Physical ---
Date of Encounter: 05/02/18 Time of Encounter: 08:00 Internal Medicine - H&P: HPI Chief complaint: abdomina and back pain. Admitted From: Home Plans for Post Hospital Care: Home History of present illness: Mr. Chen is a 67 year old male PMH of nephrolithiasis, diabetes, hypertension and chronic back pain. Patient presented to the emergency room due to right lower abdominal pain which is started around 11 PM last night. Patient described this pain as sharp, achy and dull radiating to her right lower back associated with nausea but no vomiting episodes. Patient denies urinary symptoms, fevers or chills. Reports that he had a similar episode of back pain about 3-4 months and was diagnosed with a "15mm kidney stone, which "they busted ". CT abd/pelvis done: here are multiple bilateral intrarenal calculi. A calculus is seen dependently in the right renal pelvis and there is also a 7 x 12 mm calculus at the right ureteropelvic junction. There is moderate right-sided hydronephrosis with perinephric stranding. Past Med Surg Social Fam HX - Past Medical History Medical history: diabetes, GERD, hypertension, kidney stones Additional medical history: sleep apnea with cpap. oa Psychiatric history: anxiety, depression - Past Surgical History Surgical History: cholecystectomy, vasectomy Additional surgical history: lithotripsy. right finger. left knee scope - Social History Smoking Status: Never smoker Smokeless Tobacco Status: No Alcohol use: none Drug use: none Internal Medicine - H&P: Meds Escitalopram [Lexapro] 20 mg PO DAILY 05/28/15 [History] Valsartan/Hydrochlorothiazide [Diovan Hct 320-12.5 mg Tab] 1 each PO DAILY 05/28 [History] GlipiZIDE XL (24 HR) [Glucotrol XL] 10 mg PO DAILY 01/28/16 [History] Atorvastatin Calcium [Lipitor] 80 mg PO HS 11/22/17 [History] Cyclobenzaprine [Flexeril] 10 mg PO TID 11/22/17 [History] Meloxicam [Mobic] 15 mg PO DAILY 11/22/17 [History] Potassium Chloride [K-Tab ER] 20 meq PO BID 11/22/17 [History] SitaGLIPtin [Januvia] 100 mg PO DAILY 11/22/17 [History] Docusate [Colace] 100 mg PO BID #60 capsule 12/01/17 [Rx] OxyCODONE/APAP 5/325 [Percocet 5/325 MG] 1 tab PO BID PRN 12/01/17 [History] 3 Allergy/AdvReac Type Severity Reaction Status Date / Time Amoxicillin AdvReac Hives Verified 11/21/17 23:05 ampicillin AdvReac Hives Verified 11/21/17 23:05 aspirin [ASA] AdvReac See Verified 11/21/17 23:05 Comments celecoxib [From Celebrex] AdvReac Nausea Verified 11/21/17 23:05 cephalexin [From Keflex] AdvReac Chest Pain Verified 11/21/17 23:05 lisinopril AdvReac UNKNOWN Verified 11/21/17 23:05 metformin AdvReac Diarrhea Verified 11/21/17 23:05 Penicillins AdvReac Hives Verified 11/21/17 23:05 All Systems PM: A 10-system review of systems was performed and is negative for pertinent findings except as documented above in the HPI. - Constitutional Constitutional: no chills, no fever(s), no malaise, no weakness - EENT Eyes: no irritation Nose, mouth and throat: no mouth pain, no neck pain - Cardiovascular Cardiovascular ROS IM: no chest pain, no dyspnea on exertion, no palpitations, no paroxysmal nocturnal dyspnea - Respiratory Respiratory: no cough, no dyspnea, no snoring, no pain on inspiration - Gastrointestinal Gastrointestinal: abdominal pain, nausea, no constipation, no diarrhea, no loose stools, no vomiting - Genitourinary Genitourinary ROS male: flank pain, no dysuria, no scrotal swelling, no testicular pain, no urinary frequency, no urinary hesitancy, no urinary urgency - Musculoskeletal Musculoskeletal ROS IM: back pain, muscle cramps - Neurological Neurological ROS: no weakness - Psychiatric Psychiatric: no confusion, no depression, no irritability - Endocrine Endocrine IM: no cold intolerance - Allergic/Immunologic Allergic/Immunologic: no wheezing (Rest of the review of systems negative) - Constitutional Vitals: Temp Pulse Resp BP Pulse Ox 97.8 F 81 18 145/78 96 05/02/18 03:08 05/02/18 05:57 05/02/18 05:57 05/02/18 05:57 05/02/18 05:57 Exam: General: Alert and oriented x4. In moderate distress due to abdominal pain. Skin:Normal color, no rash, no lesions. HEENT: EOM, pupils equal, round and reactive. Cardiovascular: RRR, Normal S1 & S2, no rubs, murmurs or gallops. Lungs: Clear to auscultation bilaterally, no wheezes or crackles. Abdomen: Soft, NABS in all 4 quadrants. CVA tenderness. tenderness to superficial palpation in the RLQ. Extremities: No deformity, no edema or tenderness, no joint swelling or clubbing. Neurological: Normal cognition and motor skills. Rest of the physical exam is non contributory Internal Med - H&P Results - Labs CBC & Chem 7: 05/02/18 03:40 05/02/18 03:40 - Assessment and plan (1) Ureteral stone Current Visit: Yes Status: Acute Assessment and plan: CT abd/Pelvis w/o contrast: : There are multiple bilateral intrarenal calculi. A calculus is seen dependently in the right renal pelvis and there is also a 7 x 12 mm calculus at the right ureteropelvic junction. There is moderate right-sided hydronephrosis with perinephric stranding. On the left there is either hydronephrosis or there are renal sinus cysts. Plan Started on cyclobenzaprine 10mg/PO TID NPO d5/0.45% @75mls/hr urology has been consulted will follow recommendations pain control with Tramadol 50mg/PO Q6HR (2) Acute kidney injury Current Visit: Yes Status: Acute Assessment and plan: Most llikely due to Obstructive uropathy. Started on gentle IV hydration Urologist have been consulted. (3) DVT prophylaxis Current Visit: No Status: Acute Assessment and plan: No chemical DVT prophylaxis until patient is evaluated by urology. Mechanical DVT prophylaxis. (4) Diabetes Current Visit: No Status: Chronic Assessment and plan: Started on Lispro Sliding scale Q6HR. Patient NPO, pending urology evaluation. 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 Hold home medication due to PRASAD. Hydralazine 5mg/IV Q6HR PRN for SBP >190 Qualifiers: Hypertension type: essential hypertension Qualified Code(s): I10 - Essential (primary) hypertension (6) Leukocytosis Current Visit: Yes Status: Acute Assessment and plan: Possible reactive, cannot r/o pyelonephritis. Perinepric stranding seen on CT abd and pelvis. Will start patient on empiric antibiotics with levofloxacin renal adjusted dose. U/A and urine culture. Qualifiers: Leukocytosis type: unspecified Qualified Code(s): D72.829 - Elevated white blood cell count, unspecified - Time Spent With Patient Total time spent is greater than 50% in coordination of care (as documented) at patient's floor/unit and/or counseling patient: 25 - 35 minutes
--- NOTE | 2018-05-02 08:36 | Urology - Consult Note ---
<Elva Martinez N - Last Filed: 05/02/18 08:45> Date of Encounter: 05/02/18 Time of Encounter: 08:30 - Assessment and Plan (1) Ureteral stone Current Visit: Yes Status: Acute Assessment and plan: Patient is a 67-year-old male who presents with a large right UPJ stone measuring 11-[address] findings were reviewed with the patient, the multiple stone extraction techniques were discussed with the patient, including ureteroscopic stone extraction which could take up to 3 separate procedures. Ultimately given the size of the ureteral stone and size of the right kidney stone, patient has elected to proceed with nephrostomy tube placement and scheduling percutaneous nephrolithotomy. Patient will remain nothing by mouth, and interventional radiology will be consulted. (2) Calculus of kidney Current Visit: Yes Status: Acute Assessment and plan: Patient is a 67-year-old male who presents with a 2.1 cm right renal stone and multiple non obstructing left renal stones. Patient has undergone ESWL treatment for stones in the past which was not effective. Multiple stone extraction procedures were discussed, and ultimately patient elected to proceed with nephrostomy tube placement and scheduling a percutaneous nephrolithotomy. Patient will remain nothing by mouth, interventional radiology will be consulted. (3) Leukocytosis Current Visit: Yes Status: Acute Assessment and plan: Patient is a 67-year-old male who presents with bilateral renal stones and a large obstructing right UPJ stone. Vital signs are stable and afebrile. White blood cell count is elevated to 17.2. Patient has been placed on IV Levaquin. We will continue to monitor patient and his vital signs. CBC and BMP will be repeated in the morning. Blood cultures are pending. Qualifiers: Leukocytosis type: unspecified Qualified Code(s): D72.829 - Elevated white blood cell count, unspecified Urology CN:HPI Consult date: 05/02/18 Reason for consult Urology: Other (right ureteral stone) History of present illness: Patient is a 67-year-old male who presents with a large right renal and right UPJ stones. Patient is well-known to our service as he has undergone stone extraction in the past. Patient underwent right ESWL and ureteral stent placement in November 2017 for a large uric acid and calcium oxalate stone. Patient states pain began at 11 PM yesterday in his right flank radiating to the right groin. Patient states pain has been accompanied by nausea. Patient denies vomiting, fever, chills, gross hematuria. Patient has a positive family history in both of his children for renal stones, but he is unsure of his parental history or history of his siblings. Past Med Surg Social Fam HX - Past Medical History Medical history: diabetes, GERD, hypertension, kidney stones Additional medical history: sleep apnea with cpap. oa Psychiatric history: anxiety, depression - Past Surgical History Surgical History: cholecystectomy, vasectomy Additional surgical history: lithotripsy. right finger. left knee scope - Social History Smoking Status: Never smoker Smokeless Tobacco Status: No Alcohol use: none Drug use: none Medications and Allergies Escitalopram [Lexapro] 20 mg PO DAILY 05/28/15 [History] Valsartan/Hydrochlorothiazide [Diovan Hct 320-12.5 mg Tab] 1 each PO DAILY 05/28 [History] GlipiZIDE XL (24 HR) [Glucotrol XL] 10 mg PO DAILY 01/28/16 [History] Atorvastatin Calcium [Lipitor] 80 mg PO HS 11/22/17 [History] Cyclobenzaprine [Flexeril] 10 mg PO TID 11/22/17 [History] Meloxicam [Mobic] 15 mg PO DAILY 11/22/17 [History] Potassium Chloride [K-Tab ER] 20 meq PO BID 11/22/17 [History] SitaGLIPtin [Januvia] 100 mg PO DAILY 11/22/17 [History] Docusate [Colace] 100 mg PO BID #60 capsule 12/01/17 [Rx] OxyCODONE/APAP 5/325 [Percocet 5/325 MG] 1 tab PO BID PRN 12/01/17 [History] 3 Allergy/AdvReac Type Severity Reaction Status Date / Time Amoxicillin AdvReac Hives Verified 11/21/17 23:05 ampicillin AdvReac Hives Verified 11/21/17 23:05 aspirin [ASA] AdvReac See Verified 11/21/17 23:05 Comments celecoxib [From Celebrex] AdvReac Nausea Verified 11/21/17 23:05 cephalexin [From Keflex] AdvReac Chest Pain Verified 11/21/17 23:05 lisinopril AdvReac UNKNOWN Verified 11/21/17 23:05 metformin AdvReac Diarrhea Verified 11/21/17 23:05 Penicillins AdvReac Hives Verified 11/21/17 23:05 Review of Systems - Constitutional no chills, no fatigue, no fever(s) - EENT Nose, mouth and throat: no dizziness, no headache(s) - Cardiovascular no chest pain, no diaphoresis, no dyspnea - Respiratory no cough, no dyspnea - Gastrointestinal abdominal pain, nausea, no vomiting - Genitourinary flank pain (right ), no difficulty urinating, no hematuria, no testicular pain, no urinary frequency, no urinary hesitancy, no urinary incontinence, no urinary urgency - Musculoskeletal back pain, no muscle weakness - Integumentary no erythema, no rash, no swelling - Neurological no confusion, no sensory deficit - Psychiatric no anxiety, no confusion - Hematologic/Lymphatic no easy bleeding, no easy bruising - Allergic/Immunologic no throat swelling, no wheezing Exam Initial Vital Signs Temp Pulse Resp BP Pulse Ox 97.8 F 84 18 187/89 97 05/02/18 03:08 05/02/18 03:08 05/02/18 03:08 05/02/18 03:08 05/02/18 03:08 - General physical appearance Present: well developed, no distress, no pain - Eyes Present: PERRL, normal ocular movement - ENT Present: normal nares, no hearing loss, no congestion - Neck Present: no masses, trachea midline - Respiratory Present: normal respiratory effort - Cardiovascular Cardiovascular exam IM: RRR - Abdomen Abdomen: Present: soft, tender (RLQ tenderness, RCVAT). Absent: distended - Integumentary Present: no rash, no abnormal pigmentation - Neurologic Present: normal coordination - Musculoskeletal Present: other (normal posture ) Urology Results - Labs 05/02/18 03:40 05/02/18 03:40 Abnormal lab results WBC 17.4 K/mcL (4.3-11.1) H 05/02/18 03:40 Hgb 12.8 g/dL (12.9-16.9) L 05/02/18 03:40 Neutrophils # 14.9 K/mcL (1.6-8.9) H 05/02/18 03:40 Sodium 135 mEq/L (136-145) L 05/02/18 03:40 BUN 26 mg/dL (8-23) H 05/02/18 03:40 Creatinine 1.52 mg/dL (0.70-1.30) H 05/02/18 03:40 Est GFR ( Amer) 56 (> 60) L 05/02/18 03:40 Est GFR (Non-Af Amer) 46 (> 60) L 05/02/18 03:40 Glucose 174 mg/dL (70-105) H 05/02/18 03:40 All other labs normal. - Imaging CT scan - abdomen: report reviewed, image reviewed CT scan - pelvis: report reviewed, image reviewed Consult Discharge Plan - Plan Referrals: Sidney Leger MD [Primary Care Provider] - <HerlindaPatrice Corbett - Last Filed: 05/02/18 09:16> Date of Encounter: 05/02/18 - Assessment and Plan (1) Calculus of kidney Current Visit: Yes Status: Acute Assessment and plan: I have seen and examined the patient with Elva Mratinez and I agree with her plan. I spoke with the patient regarding the possible need for multiple procedures from a ureteroscopic stone extraction standpoint. We will plan on proceeding with right nephrostomy tube placement today. Patient will need to continue with IV antibiotics until initial cultures return. Patient will be returned to the operating room the next 1-2 weeks for right percutaneous nephrolithotomy. Exam Initial Vital Signs Temp Pulse Resp BP Pulse Ox 97.8 F 84 18 187/89 97 05/02/18 03:08 05/02/18 03:08 05/02/18 03:08 05/02/18 03:08 05/02/18 03:08 Urology Results - Labs 05/02/18 03:40 05/02/18 03:40 Abnormal lab results WBC 17.4 K/mcL (4.3-11.1) H 05/02/18 03:40 Hgb 12.8 g/dL (12.9-16.9) L 05/02/18 03:40 Neutrophils # 14.9 K/mcL (1.6-8.9) H 05/02/18 03:40 Sodium 135 mEq/L (136-145) L 05/02/18 03:40 BUN 26 mg/dL (8-23) H 05/02/18 03:40 Creatinine 1.52 mg/dL (0.70-1.30) H 05/02/18 03:40 Est GFR ( Amer) 56 (> 60) L 05/02/18 03:40 Est GFR (Non-Af Amer) 46 (> 60) L 05/02/18 03:40 Glucose 174 mg/dL (70-105) H 05/02/18 03:40 All other labs normal.
[2018-05-02] MEDS: traMADol 50 MG TABLET PO PRN ×2 (09:53→16:11)
[2018-05-02] MEDS: D5% in 0.45% NACL 1,000 ML IVC SCH ×2 (09:54→23:17)
[2018-05-02] MEDS: Levofloxacin 750 MG/150 ML 750 MG/150 ML BAG IVPB SCH (09:55)
[2018-05-02 10:01] LABS: INR 1.1; Prothrombin Time 12.8 Seconds (9.4-12.1)
[2018-05-02 10:03] LABS: Activated Partial Thrombo Time 31.3 Seconds (26.0-36.0)
[2018-05-02] MEDS: Insulin LISPRO 300 UNITS/3 ML VIAL SQ SCH ×3 (11:31→23:57)
[2018-05-02] MEDS ORDERED: *HR* HYDROcodone/Acet 5/325 mg TABLET PO PRN (17:02)
[2018-05-02] MEDS: OXYCODONE Oral CONC 10 MG/0.5 ML ORAL.SYG SL PRN (22:15)
[2018-05-03 11:42] LABS: Hematocrit 34.2 % (37.5-50.1); Hemoglobin 11.3 g/dL (12.9-16.9); Immature Platelets 4.7 % (1.1-6.1); Mean Corpuscular Hemoglobin 30.2 pg (28.0-33.3); Mean Corpuscular Volume 91.4 fL (83.0-100.0); Mean Platelet Volume 10.6 fL (9.4-12.4); Red Blood Count 3.74 M/mcL (4.19-5.50); Red Cell Distribution Width 12.3 % (11.5-14.5)
[2018-05-03 11:49] LABS: Calcium 8.5 mg/dL (8.6-10.3); Magnesium 1.3 mg/dL (1.6-2.6); Phosphorous 3.1 mg/dL (2.7-4.5); Potassium 3.7 mEq/L (3.5-5.1)
[2018-05-03] MEDS: Insulin LISPRO 300 UNITS/3 ML VIAL SQ SCH ×3 (11:56→17:57)
[2018-05-03] MEDS: OXYCODONE Oral CONC 10 MG/0.5 ML ORAL.SYG SL PRN ×3 (11:57→21:39)
--- NOTE | 2018-05-03 13:02 | Internal Med Progress Note ---
Hospitalist Progress Note - Encounter Date of Encounter: 05/03/18 Time of Encounter: 09:49 - Subjective Interval History: Patient seen and examined this morning. No acute overnight events. Abdominal pain improved. Denies Nausea, vomiting, fever, chills or diarrhea. - Exam Vitals: Temp Pulse Resp BP Pulse Ox 98.2 F 76 16 135/60 95 05/03/18 12:07 05/03/18 12:07 05/03/18 12:07 05/03/18 12:07 05/03/18 12:07 Exam: General:Ax3. In no distress , Obese HEENT: EOM, PEARLA Cardiovascular: RRR, Normal S1 & S2, no rubs, murmurs or gallops. Lungs: Clear to auscultation bilaterally, no wheezes or crackles. Abdomen: Soft, non tender. No CVA tenderness. Extremities: No deformity, no edema or tenderness. Neurological: No focal deficits - Assessment and Plan (1) Acute kidney injury Current Visit: Yes Status: Acute (2) Ureteral stone Current Visit: Yes Status: Acute (3) Diabetes Current Visit: No Status: Chronic (4) Hypertension Current Visit: No Status: Chronic (5) DVT prophylaxis Current Visit: No Status: Acute (6) Leukocytosis Current Visit: Yes Status: Acute - Summary of Assessment and Plan Summary of Assessment and Plan: Ureteral stone - CT abd/Pelvis w/o contrast with multiple bilateral intrarenal calculi. Rt UVJ 7 x 12 mm calculus with mod Rt hydronephrosis and perinephric stranding. - NPO - c/w d5/0.45% @75mls/hr - urology following. Plan for IR guided Rt nephrostomy tube placement subsequent PCNL. - pain/nausea control with oxycodone and zofran Leukocytosis - improving - Possible reactive, cannot r/o pyelonephritis. Perinepric stranding seen on CT abd and pelvis. - c/w empiric antibiotics with levofloxacin renal adjusted dose. - U/A unremarkable. Blood culture 05/02 NGTD and Urine culture NGTD Acute kidney injury - Most llikely due to Obstructive uropathy. Possible component of CKD. - c/w IVF - Worsened today. To undergo nephrostomy today. - Strict I/O. Avoid nephrotoxins. - Urology following. Diabetes - c/w SSI Q6HR with accuchecks - currenlty NPO - Hold oral hypolycemics Hypertension - hold Valsartan/Hydrochlorothiazide due to PRASAD - Hydralazine 5mg/IV Q6HR PRN for SBP >190 DVT prophylaxis - EPCD - Time Spent with Patient Total time spent is greater than 50% in coordination of care (as documented) at patient's floor/unit and/or counseling patient: Internal Medicine: Result - Labs CBC & Chem 7: 05/03/18 05:19 05/03/18 05:19 Labs: Short CBC 05/03/18 Range/Units 05:19 WBC 12.5 H (4.3-11.1) K/mcL Hgb 11.3 L D (12.9-16.9) g/dL Hct 34.2 L (37.5-50.1) % Plt Count 245 (140-400) K/mcL BMP 05/03/18 05:19 Sodium 136 Potassium 3.7 Chloride 102 Carbon Dioxide 27 BUN 24 H Creatinine 2.11 H Glucose 147 H Calcium 8.5 L - ABG Interpretation ABG results: PT/INR, D-dimer PT 12.8 Seconds (9.4-12.1) H 05/02/18 09:18 Consult Discharge Plan - Plan Referrals: Sidney Leger MD [Primary Care Provider] - (3) Diabetes Qualifiers: Diabetes mellitus type: type 2 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
--- NOTE | 2018-05-03 13:15 | Urology Progress Note ---
<Elva Martinez N - Last Filed: 05/03/18 13:13> Date of Encounter: 05/03/18 Time of Encounter: 12:45 - Assessment and Plan (1) Ureteral stone Current Visit: Yes Status: Acute Assessment and plan: Patient is a 67-year-old male who presents with an 11-12 mm right UPJ stone. Patient is currently awaiting interventional radiology for right nephrostomy tube placement and subsequent PCNL procedure. White blood cell count is trending down. BUN/creatinine are noticeably elevated from yesterday. We will reevaluate renal function after nephrostomy tube is placed. (2) Calculus of kidney Current Visit: Yes Status: Acute Assessment and plan: Patient is a 67-year-old male who presents with a 2.1 cm right renal stone. P atient also currently has an 11-12 mm right UPJ stone. Creatinine has worsened from 1.52 yesterday to 2.11 today. And GFR is diminished from 46 yesterday to 31 today. Patient is awaiting interventional radiology for right nephrostomy tube placement. Patient will remain NPO, and we will continue with supportive care and pain management. Progress Note Narrative: Patient seen and examined lying in bed asleep resting comfortably. Patient has remained nothing by mouth and is currently awaiting interventional radiology for nephrostomy tube placement. Vital signs are stable and afebrile. Objective Initial Vital Signs Temp Pulse Resp BP Pulse Ox 97.8 F 84 18 187/89 97 05/02/18 03:08 05/02/18 03:08 05/02/18 03:08 05/02/18 03:08 05/02/18 03:08 - General physical appearance Present: well developed, no distress, no pain, other (patient sleeping; did not want to awaken secondary to previous discomfort ) - Respiratory Present: normal expansion, normal respiratory effort - Integumentary Present: no rash, no abnormal pigmentation - Labs 05/03/18 05:19 05/03/18 05:19 Diabetes panel 05/03/18 Range/Units 05:19 Sodium 136 (136-145) mEq/L Potassium 3.7 (3.5-5.1) mEq/L Chloride 102 (98-107) mEq/L Carbon Dioxide 27 (23-29) mEq/L BUN 24 H (8-23) mg/dL Creatinine 2.11 H (0.70-1.30) mg/dL Glucose 147 H (70-105) mg/dL Calcium 8.5 L (8.6-10.3) mg/dL Calcium panel 05/03/18 Range/Units 05:19 Calcium 8.5 L (8.6-10.3) mg/dL Phosphorus 3.1 (2.7-4.5) mg/dL Pituitary panel 05/03/18 Range/Units 05:19 Sodium 136 (136-145) mEq/L Potassium 3.7 (3.5-5.1) mEq/L Chloride 102 (98-107) mEq/L Carbon Dioxide 27 (23-29) mEq/L BUN 24 H (8-23) mg/dL Creatinine 2.11 H (0.70-1.30) mg/dL Glucose 147 H (70-105) mg/dL Calcium 8.5 L (8.6-10.3) mg/dL Adrenal panel 05/03/18 Range/Units 05:19 Sodium 136 (136-145) mEq/L Potassium 3.7 (3.5-5.1) mEq/L Chloride 102 (98-107) mEq/L Carbon Dioxide 27 (23-29) mEq/L BUN 24 H (8-23) mg/dL Creatinine 2.11 H (0.70-1.30) mg/dL Glucose 147 H (70-105) mg/dL Calcium 8.5 L (8.6-10.3) mg/dL Consult Discharge Plan - Plan Referrals: Sidney Leger MD [Primary Care Provider] - <Patrice Pate - Last Filed: 05/03/18 15:04> - Assessment and Plan (1) Calculus of kidney Current Visit: Yes Status: Acute Assessment and plan: Patient was seen and examined independtly. agree with plan as written by Elva Martinez. Objective Initial Vital Signs Temp Pulse Resp BP Pulse Ox 97.8 F 84 18 187/89 97 05/02/18 03:08 05/02/18 03:08 05/02/18 03:08 05/02/18 03:08 05/02/18 03:08 - Labs 05/03/18 05:19 05/03/18 05:19 Diabetes panel 05/03/18 Range/Units 05:19 Sodium 136 (136-145) mEq/L Potassium 3.7 (3.5-5.1) mEq/L Chloride 102 (98-107) mEq/L Carbon Dioxide 27 (23-29) mEq/L BUN 24 H (8-23) mg/dL Creatinine 2.11 H (0.70-1.30) mg/dL Glucose 147 H (70-105) mg/dL Calcium 8.5 L (8.6-10.3) mg/dL Calcium panel 05/03/18 Range/Units 05:19 Calcium 8.5 L (8.6-10.3) mg/dL Phosphorus 3.1 (2.7-4.5) mg/dL Pituitary panel 05/03/18 Range/Units 05:19 Sodium 136 (136-145) mEq/L Potassium 3.7 (3.5-5.1) mEq/L Chloride 102 (98-107) mEq/L Carbon Dioxide 27 (23-29) mEq/L BUN 24 H (8-23) mg/dL Creatinine 2.11 H (0.70-1.30) mg/dL Glucose 147 H (70-105) mg/dL Calcium 8.5 L (8.6-10.3) mg/dL Adrenal panel 05/03/18 Range/Units 05:19 Sodium 136 (136-145) mEq/L Potassium 3.7 (3.5-5.1) mEq/L Chloride 102 (98-107) mEq/L Carbon Dioxide 27 (23-29) mEq/L BUN 24 H (8-23) mg/dL Creatinine 2.11 H (0.70-1.30) mg/dL Glucose 147 H (70-105) mg/dL Calcium 8.5 L (8.6-10.3) mg/dL
[2018-05-03] MEDS: D5% in 0.45% NACL 1,000 ML IVC SCH (13:26)
[2018-05-03] MEDS: Levofloxacin 750 MG/150 ML 750 MG/150 ML BAG IVPB SCH (13:30)
[2018-05-03] MEDS ORDERED: 0.9 % Sodium Chloride 500 ML ONE (13:38)
[2018-05-03] MEDS ORDERED: *HR* FentaNYL (PF) 100 MCG/2 ML VIAL IVP ONE (14:03)
[2018-05-03] MEDS ORDERED: *HR* Midazolam HCl 2 MG/2 ML VIAL IVP ONE (14:03)
--- NOTE | 2018-05-03 14:06 | Pre-Sedation Evaluation ---
Pre-sedation evaluation - Pre-sedation checklist Date of procedure: 05/03/18 Procedure: R PCN tube placement Recent Vitals: Last Vital Signs Temp 98.1 F 05/03/18 13:34 Pulse 83 05/03/18 13:34 Resp 13 05/03/18 13:34 BP 106/61 05/03/18 13:34 Pulse Ox 96 05/03/18 13:34 Dietary Status: NPO 6 hours prior to procedure Airway Assessment: Patient can open mouth completely, TMJ function normal, Mi crognathia (under-bite, receding chin) absent, Neck with adequate range of motion ASA Classification *see protocol: CLASS II-Mild systemic disease Plan of Care: Pt appropriate candidate for procedure/moderate/conscious sedation, Risks/benefits of procedure/sedation discussed w/ patient/family, If not NPO; Risk of intake outweiged by necessity to perform procedure
[2018-05-03] MEDS ORDERED: OXYCODONE Oral CONC 10 MG/0.5 ML ORAL.SYG PO ONE (14:36)
[2018-05-03] MEDS ORDERED: Insulin LISPRO 300 UNITS/3 ML VIAL SQ ONE (14:36)
[2018-05-03] MEDS ORDERED: Isovue-300 50 ML VIAL IVP ONE (14:37)
--- NOTE | 2018-05-03 15:30 | IR Procedure Note ---
Date of procedure: 05/03/18 Consent Obtained: Verbal consent, Written consent Timeout: Correct patient and procedure verified, Correct site verified, Time out performed, Skin prep completed Local anesthetic: Lidocaine 1% Indications: hydronephrosis Procedure Performed: R nephrostomy catheter placement Was there an assistant attorney general present: No Site/Technique: right Results/Findings: Right UPJ calculus with high grade obstruction Estimated blood loss (cc): 1 Post Procedure Treatment Plan: catheter to gravity drainage Specimen: none
[2018-05-03] MEDS ORDERED: Insulin LISPRO 300 UNITS/3 ML VIAL SQ SCH (21:00)
[2018-05-04] MEDS: D5% in 0.45% NACL 1,000 ML IVC SCH (05:12)
[2018-05-04] MEDS: OXYCODONE Oral CONC 10 MG/0.5 ML ORAL.SYG SL PRN (05:16)
[2018-05-04 05:21] LABS: Basophils % 0.3 %; Eosinophils # 0.1 K/mcL (0.0-0.6); Eosinophils % 0.9 %; Immature Granulocytes % 0.4 % (0-4); Lymphocytes # 1.4 K/mcL (0.6-4.6); Lymphocytes % 14.2 %; Mean Corpuscular Volume 90.9 fL (83.0-100.0); Mean Platelet Volume 10.2 fL (9.4-12.4); Monocytes # 1.1 K/mcL (0.0-1.3); Monocytes % 10.9 %; Neutrophils # 7.3 K/mcL (1.6-8.9); Platelet Count 212 K/mcL (140-400); Red Blood Count 3.63 M/mcL (4.19-5.50); Red Cell Distribution Width 12.5 % (11.5-14.5); Segmented Neutrophils % 73.3 %
[2018-05-04 05:27] LABS: Hemoglobin 10.9 g/dL (12.9-16.9)
[2018-05-04 05:41] LABS: Calcium 8.5 mg/dL (8.6-10.3); Potassium 3.9 mEq/L (3.5-5.1)
--- NOTE | 2018-05-04 08:28 | Urology Progress Note ---
Date of Encounter: 05/04/18 Time of Encounter: 08:26 - Assessment and Plan (1) Calculus of kidney Current Visit: Yes Status: Acute Assessment and plan: sp pcn tube. ok to dc from urology standpoint. patient will be scheduled for return to the OR in 2 weeks. Progress Note Narrative: Jad is a 67 y/o male pod 1 from right nephrostomy tube. doing well. pain well controlled. serum creatinine improved. Objective Initial Vital Signs Temp Pulse Resp BP Pulse Ox 97.8 F 84 18 187/89 97 05/02/18 03:08 05/02/18 03:08 05/02/18 03:08 05/02/18 03:08 05/02/18 03:08 - General physical appearance Present: well developed, well nourished - Abdomen Present: soft. Absent: tender - Additional Exam back: right nephrostomy tube clear urine. - Labs 05/04/18 04:52 05/04/18 04:52 Diabetes panel 05/03/18 05/04/18 Range/Units 05:19 04:52 Sodium 136 137 (136-145) mEq/L Potassium 3.7 3.9 (3.5-5.1) mEq/L Chloride 102 103 (98-107) mEq/L Carbon Dioxide 27 27 (23-29) mEq/L BUN 24 H 20 (8-23) mg/dL Creatinine 2.11 H 1.59 H (0.70-1.30) mg/dL Glucose 147 H 123 H (70-105) mg/dL Calcium 8.5 L 8.5 L (8.6-10.3) mg/dL Calcium panel 05/03/18 05/04/18 Range/Units 05:19 04:52 Calcium 8.5 L 8.5 L (8.6-10.3) mg/dL Phosphorus 3.1 (2.7-4.5) mg/dL Pituitary panel 05/03/18 05/04/18 Range/Units 05:19 04:52 Sodium 136 137 (136-145) mEq/L Potassium 3.7 3.9 (3.5-5.1) mEq/L Chloride 102 103 (98-107) mEq/L Carbon Dioxide 27 27 (23-29) mEq/L BUN 24 H 20 (8-23) mg/dL Creatinine 2.11 H 1.59 H (0.70-1.30) mg/dL Glucose 147 H 123 H (70-105) mg/dL Calcium 8.5 L 8.5 L (8.6-10.3) mg/dL Adrenal panel 05/03/18 05/04/18 Range/Units 05:19 04:52 Sodium 136 137 (136-145) mEq/L Potassium 3.7 3.9 (3.5-5.1) mEq/L Chloride 102 103 (98-107) mEq/L Carbon Dioxide 27 27 (23-29) mEq/L BUN 24 H 20 (8-23) mg/dL Creatinine 2.11 H 1.59 H (0.70-1.30) mg/dL Glucose 147 H 123 H (70-105) mg/dL Calcium 8.5 L 8.5 L (8.6-10.3) mg/dL Consult Discharge Plan - Plan Referrals: Sidney Leger MD [Primary Care Provider] -
[2018-05-04] MEDS: Insulin LISPRO 300 UNITS/3 ML VIAL SQ SCH ×2 (10:07→12:56)
[2018-05-04 10:53] VITALS: BP 111/58
--- NOTE | 2018-05-04 11:58 | Discharge Summary ---
- NOTES TO OUTPATIENT PROVIDER Notes to Outpatient Provider: Follow-up renal function within a week. Did not came back to baseline on discharge however downtrending. Also needs workup for anemia. He will need follow-up surgery with urology in 2 weeks. To finish 5 day course of antibiotics. 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 Chen is a 67 year old male with past medical history of nephrolithiasis, diabetes, hypertension With right lower abdominal pain. CT abdomen and pelvis showed multiple bilateral intrarenal calculi and right ureteropelvic junction calculus of 7 x 12 mm with right sided hydronephrosis and perinephric stranding. Patient had laboratory evidence of PRASAD. Urology was consulted. Patient had IR guided right nephrostomy catheter placement. No complication occurred during and after the procedure. Patient tolerated diet well afterwards. Patient's renal function improved the next day. Patient urinating well. Patient's hemoglobin did drop about a point and a half however no obvious source of bleeding. Was deemed likely due to dilution effect as well as some component of CKD. Blood and urine culture did not grow any organism. Patient was stable the next day and decided the discharge has a insisted to go home. However his kidney function was at baseline and he agreed to follow with PCP. Patient will finish 5 day course of Levaquin. Discharge discussed with: patient, nurse, social work (35), case management (40), hr shared services consultant - Time Spent with Patient Total time spent providing and/or coordinating discharge services: Greater than 30 minutes - Discharge Medications Prescriptions: Levofloxacin [Levaquin] 750 mg PO DAILY 2 Days #2 tablet Home Medications: Escitalopram [Lexapro] 20 mg PO DAILY 05/28/15 [History] GlipiZIDE XL (24 HR) [Glucotrol XL] 10 mg PO DAILY 01/28/16 [History] Atorvastatin Calcium [Lipitor] 80 mg PO HS 11/22/17 [History] Cyclobenzaprine [Flexeril] 10 mg PO TID 11/22/17 [History] SitaGLIPtin [Januvia] 100 mg PO DAILY 11/22/17 [History] Docusate [Colace] 100 mg PO BID #60 capsule 12/01/17 [Rx] OxyCODONE/APAP 5/325 [Percocet 5/325 MG] 1 tab PO BID PRN 12/01/17 [History] Levofloxacin [Levaquin] 750 mg PO DAILY 2 Days #2 tablet 05/04/18 [Rx] Allergies/Adverse Reactions: Allergy/AdvReac Type Severity Reaction Status Date / Time Amoxicillin AdvReac Hives Verified 11/21/17 23:05 ampicillin AdvReac Hives Verified 11/21/17 23:05 aspirin [ASA] AdvReac See Verified 11/21/17 23:05 Comments celecoxib [From Celebrex] AdvReac Nausea Verified 11/21/17 23:05 cephalexin [From Keflex] AdvReac Chest Pain Verified 11/21/17 23:05 lisinopril AdvReac UNKNOWN Verified 11/21/17 23:05 metformin AdvReac Diarrhea Verified 11/21/17 23:05 Penicillins AdvReac Hives Verified 11/21/17 23:05 Date of admission: 05/02/18 06:29 Primary care physician: Sidney Leger MD Consults: 05/02/18 05:32 Consult to Urology [CONS] Stat Consulting Provider: Urology Stephanie Reason for Consult: 11mm obstructing ureterolith Time Notified: 05:23 Call Completed: Yes 05/02/18 08:52 Consult to Interventional Radiology [CONS] Routine Consulting Provider: Radiology Interventional Cols Reason for Consult: right nephrostomy tube Call Completed: No Discharging clinician: Mary Ring - Constitutional Vitals: Temp Pulse Resp BP Pulse Ox 98.1 F 82 16 111/58 95 05/04/18 10:43 05/04/18 10:43 05/04/18 10:43 05/04/18 10:43 05/04/18 10:43 General appearance: Present: pleasant, no acute distress Exam: General:Ax3. In no distress , Obese HEENT: EOM, PEARLA Cardiovascular: RRR, Normal S1 & S2, no rubs, murmurs or gallops. Lungs: Clear to auscultation bilaterally, no wheezes or crackles. Abdomen: Soft, non tender. No CVA tenderness. Has Nephrostomy drain in place. Extremities: No deformity, no edema or tenderness. Neurological: No focal deficits - Patient Status Disposition: Home, Self-Care Condition: Fair - Discharge Instructions Instructions: Urinary Tract Infection in Men (DC), Diabetes Mellitus Type 2 in Adults (DC), Sepsis (DC), Chronic Hypertension (DC) Follow Up With: Patrice Pate MD [Partnered Physician] - (Office will call patient to schedule follow up surgery in two weeks. Thank you) Sidney Leger MD [Primary Care Provider] - 05/09/18 9:45 am Forms: ED Satisfaction Letter, Work/School Release - Diet and Activity Activity: resume usual activities as tolerated
== END 2018-05-04 14:37 | disposition home or self-care (01) ==
LOC: EMEROOARM 03:05 → 3ANU 03:05 → SUATTDRO 06:29 → 3ANU 08:25
PROVIDERS: ADMIT Pediatrics; ATTEND Internal Medicine